=== PATIENT | female | born 2000 | race Caucasian/White ===

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

== ENCOUNTER → 2021-01-11 | Outpatient (CLI) | payer MEDICAID, SELFPAY ==
[2020-12-17 13:36] VITALS: BMI 38.0
[2021-01-11 15:49] LABS: Mucous, Urine 0 SEEN /hpf (<or=2+)
[2021-01-11 16:38] LABS: Color, Urine Yellow (Yellow); Glucose, Dipstick Normal (Normal); Ketone-Dipstick Negative (Negative); Leukocyte Esterase-Dipstick 500 /ul (Negative); Nitrite-Dipstick Negative (Negative); Occult Blood-Urine 10 /ul (Negative); Protein-Dipstick 15 mg/dl (Negative); Urine Bilirubin Dipstick Negative (Negative); Urine Clarity Sl. Cloudy (Clear); Urine Urobilinogen Normal (Normal)
[2021-01-11 16:54] LABS: Red Blood Cells-Urine 0-5 SEEN /hpf (0-5); Squamous Epithelial Cells - UA 5-10 SEEN /hpf (5-10); White Blood Cells 50-100 SEEN /hpf (0-5)
[2021-01-11 16:55] LABS: Amorphous Sediment 1+ PHOS; Bacteria 3+ /hpf (None Seen)
== END | disposition home or self-care (01) ==
LOC: LABSPEC 15:40
PROVIDERS: PCP Pediatrics; Visit Provider Obstetrics & Gynecology
DX: Z34.83 Encounter for supervision of other normal pregnancy, third trimester (principal)
CPT/HCPCS: 81001; 87086; 87088

== ENCOUNTER 2021-01-14 12:00 | Outpatient (CLI) | payer MEDICAID, SELFPAY ==
[2021-01-14 12:08] VITALS: BP 102/52; PULSE 95; TEMP 36.1; BMI 38.0
--- NOTE | 2021-01-14 23:11 | OB.TRI.NOTE ---
- Problem List (1) 32 weeks gestation of Status: Acute (2) Modified White class B pregestational diabetes mellitus Status: Acute History of Present Illness Date of Service: 01/14/21 Was patient seen by the physician?: No Reason For Visit: NST Final JOHANA: 03/06/21 Final JOHANA Source: US <20 weeks Gestational age: 32 Weeks and 5 Days History of Present Illness: 20y o at 32 5/7wga with hx pregestational diabetes presents for scheduled NST. Allergies amoxicillin [From Augmentin] Adverse Reaction (Verified 09/15/20 14:31) Other clavulanic acid [From Augmentin] Adverse Reaction (Verified 09/15/20 14:31) Other - Pertinent Past Medical History Medical History: Past Medical History (Last Updated 01/14/21 @ 23:[address] Idalia Willis MD) Bipolar depression Diabetes mellitus Surgical History: Past Surgical History (Last Updated 01/14/21 @ 23:[address] 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
== END 2021-01-14 12:30 | disposition home or self-care (01) ==
PROVIDERS: PCP Pediatrics; Referring Provider Obstetrics & Gynecology; Visit Provider Obstetrics & Gynecology
DX: O24.313 Unspecified pre-existing diabetes mellitus in pregnancy, third trimester (principal); Z3A.32 32 weeks gestation of pregnancy
CPT/HCPCS: 59025; 59050; 99218; G0378

== ENCOUNTER 2021-01-21 12:20 | Outpatient (CLI) | payer MEDICAID, SELFPAY ==
[2021-01-21 12:33] VITALS: BP 123/74; PULSE 89; TEMP 36.8; O2SAT 99
[2021-01-21 12:34] VITALS: BP 123/74; PULSE 89
[2021-01-21 12:46] LABS: Mucous, Urine 0 SEEN /hpf (<or=2+); Red Blood Cells-Urine 0 SEEN /hpf (0-5)
[2021-01-21 12:47] LABS: Color, Urine Yellow (Yellow); Glucose, Dipstick Normal (Normal); Ketone-Dipstick Negative (Negative); Leukocyte Esterase-Dipstick 25 /ul (Negative); Nitrite-Dipstick Negative (Negative); Occult Blood-Urine Negative /ul (Negative); Protein-Dipstick Negative (Negative); Urine Bilirubin Dipstick Negative (Negative); Urine Clarity Sl. Cloudy (Clear); Urine Urobilinogen Normal (Normal)
[2021-01-21 12:59] LABS: Bacteria 1+ /hpf (None Seen); Squamous Epithelial Cells - UA 0-5 SEEN /hpf (5-10); White Blood Cells 0-5 SEEN /hpf (0-5)
[2021-01-21 13:01] VITALS: BMI 38.7
[2021-01-21] MEDS: Acetaminophen 500 MG Tablet 1000 MG PO (14:04)
[2021-01-21 14:15] LABS: Fetal Fibronectin Negative
--- NOTE | 2021-01-25 22:23 | OB.TRI.NOTE ---
History of Present Illness Date of Service: 01/21/21 Was patient seen by the physician?: No Reason For Visit: NON STRESS TEST Date of Service: 01/21/21 Final JOHANA: 03/06/21 Final JOHANA Source: US <20 weeks Gestational age: 33 Weeks and 5 Days History of Present Illness: 33+ week intrauterine presents with some cramping and pressure. Allergies amoxicillin [From Augmentin] Adverse Reaction (Verified 01/21/21 13:00) Other clavulanic acid [From Augmentin] Adverse Reaction (Verified 01/21/21 13:00) Other - Pertinent Past Medical History Medical History: Past Medical History (Last Updated 01/14/21 @ 23:[address] Idalia Willis MD) Bipolar depression Diabetes mellitus Surgical History: Past Surgical History (Last Updated 01/14/21 @ 23:[address] Idalia Willis MD) H/O dilation and curettage 10/2016 Laboratory Studies: Laboratory Tests 01/21/21 01/21/21 Range/Units 13:35 12:40 Urine Color Yellow (Yellow) Urine Clarity Sl. Cloudy (Clear) Urine pH 7.0 (5.0 - 8.0) Ur Specific [place] 1.010 (1.002-1.030) Urine Protein Negative (Negative) mg/dl Urine Glucose (UA) Normal (Normal) mg/dl Urine Ketones Negative (Negative) mg/dl Urine Occult Blood Negative (Negative) /ul Urine Nitrite Negative (Negative) Urine Bilirubin Negative (Negative) mg/dL Urine Urobilinogen Normal (Normal) mg/dl Ur Leukocyte Esterase 25 H (Negative) /ul Urine RBC 0 SEEN (0-5) /hpf Urine WBC 0-5 SEEN (0-5) /hpf Ur Squamous Epith Cells 0-5 SEEN (5-10) /hpf Urine Bacteria 1+ (None Seen) /hpf Urine Mucus 0 SEEN (<or=2+) /hpf Fibronectin Negative Physical Exam Vitals: Vital Signs Temp Pulse BP Pulse Ox 98.2 F 89 123/74 H 99 01/21/21 12:33 01/21/21 12:34 01/21/21 12:34 01/21/21 12:33 NST - FHR Rate Baby A NST Reactive:: Yes FHR Category:: Category I Impression/Plan 33+ week intrauterine with some transient contractions. These resolved after pushing oral fluids. Cervix is nonthreatening. NST was reactive. Discharge to home with routine instructions.
== END 2021-01-21 15:15 | disposition home or self-care (01) ==
LOC: WPOUT 12:25 → OBT 12:28
PROVIDERS: PCP Pediatrics; Visit Provider Obstetrics & Gynecology
DX: O47.03 False labor before 37 completed weeks of gestation, third trimester (principal); O24.913 Unspecified diabetes mellitus in pregnancy, third trimester; Z3A.33 33 weeks gestation of pregnancy
CPT/HCPCS: 59025; 59050; 81001; 82731; 87086; 87088; 99218; G0378

== ENCOUNTER 2021-01-29 16:35 | Outpatient (CLI) | payer MEDICAID, SELFPAY ==
[2021-01-29 16:50] VITALS: TEMP 36.4
[2021-01-29 16:51] VITALS: BP 106/62; PULSE 99
[2021-01-29 16:55] VITALS: BMI 38.5
[2021-01-29 17:55] LABS: Mucous, Urine 0 SEEN /hpf (<or=2+); Red Blood Cells-Urine 0 SEEN /hpf (0-5)
[2021-01-29 17:57] LABS: Color, Urine Yellow (Yellow); Glucose, Dipstick Normal (Normal); Ketone-Dipstick Negative (Negative); Leukocyte Esterase-Dipstick 500 /ul (Negative); Nitrite-Dipstick Negative (Negative); Occult Blood-Urine Negative /ul (Negative); Protein-Dipstick Negative (Negative); Specific Gravity, Urine 1.015 (1.002-1.030); Urine Bilirubin Dipstick Negative (Negative); Urine Clarity Sl. Cloudy (Clear); Urine Urobilinogen 1 mg/dl (Normal); Urine pH 6.5 (5.0 - 8.0)
[2021-01-29 18:30] LABS: Squamous Epithelial Cells - UA 0-5 SEEN /hpf (5-10); White Blood Cells 10-25 SEEN /hpf (0-5)
[2021-01-29 18:31] LABS: Bacteria 1+ /hpf (None Seen)
--- NOTE | 2021-01-31 07:11 | OB.TRI.HP_ITS ---
History of Present Illness Date of Service: 01/29/21 Was patient seen by the physician?: No Reason For Visit: CRAMPING Date of Service: 01/29/21 Final JOHANA: 03/06/21 Final JOHANA Source: US <20 weeks Gestational age: 34 Weeks and 6 Days History of Present Illness: This is an 19-year-old G2, P0 Ab1 who presents to labor and delivery with some crampiness at 34+ weeks gestation. Allergies amoxicillin [From Augmentin] Adverse Reaction (Verified 01/29/21 16:56) Other clavulanic acid [From Augmentin] Adverse Reaction (Verified 01/29/21 16:56) Other - Pertinent Past Medical History Medical History: Past Medical History (Last Updated 01/14/21 @ 23:[address] Idalia Willis MD) Bipolar depression Diabetes mellitus Surgical History: Past Surgical History (Last Updated 01/14/21 @ 23:[address] Idalia Willis MD) H/O dilation and curettage 10/2016 Laboratory Studies: Laboratory Tests 01/29/21 Range/Units 17:00 Urine Color Yellow (Yellow) Urine Clarity Sl. Cloudy (Clear) Urine pH 6.5 (5.0 - 8.0) Ur Specific [place] 1.015 (1.002-1.030) Urine Protein Negative (Negative) mg/dl Urine Glucose (UA) Normal (Normal) mg/dl Urine Ketones Negative (Negative) mg/dl Urine Occult Blood Negative (Negative) /ul Urine Nitrite Negative (Negative) Urine Bilirubin Negative (Negative) mg/dL Urine Urobilinogen 1 H (Normal) mg/dl Ur Leukocyte Esterase 500 H (Negative) /ul Urine RBC 0 SEEN (0-5) /hpf Urine WBC 10-25 SEEN (0-5) /hpf Ur Squamous Epith Cells 0-5 SEEN (5-10) /hpf Urine Bacteria 1+ (None Seen) /hpf Urine Mucus 0 SEEN (<or=2+) /hpf Physical Exam Vitals: Vital Signs Temp Pulse BP 97.5 F L 99 106/62 01/29/21 16:50 01/29/21 16:51 01/29/21 16:51 NST - FHR Rate Baby B NST Reactive:: Yes FHR Category:: Category I Impression/Plan 34+ week intrauterine with some transient contractions. Reactive nonstress test. Minimal contractions noted on monitor or during observation of the patient. Cervix is unchanged versus checked about a week ago and is closed. Will discharge to home with routine instructions and follow-up.
== END 2021-01-29 17:30 | disposition home or self-care (01) ==
LOC: WPOUT 16:47 → WP 16:48
PROVIDERS: PCP Pediatrics; Visit Provider Obstetrics & Gynecology
DX: O60.03 Preterm labor without delivery, third trimester (principal); O24.913 Unspecified diabetes mellitus in pregnancy, third trimester; Z79.4 Long term (current) use of insulin; Z3A.34 34 weeks gestation of pregnancy
CPT/HCPCS: 59025; 59050; 81001; 87086; 87088; 99218; G0378

== ENCOUNTER → 2021-02-22 | Outpatient (CLI) | payer MEDICAID, SELFPAY ==
[2021-01-29 16:55] VITALS: BMI 38.5
== END | disposition home or self-care (01) ==
LOC: LABSPEC 11:46
PROVIDERS: PCP Pediatrics; Visit Provider Obstetrics & Gynecology
DX: Z36.85 Encounter for antenatal screening for Streptococcus B (principal)
CPT/HCPCS: 87081

== ENCOUNTER 2021-02-27 07:00 | Inpatient (IN) | payer MEDICAID, SELFPAY ==
[2021-02-27] VITALS (14 sets, daily range): BP systolic 112–132; BP diastolic 58–84; PULSE 57–77; TEMP 36.6–36.9; O2SAT 97–99; BMI 39.2
[2021-02-27] MEDS: Lactated Ringers 1,000 ML 50 ML IV (07:45)
[2021-02-27 08:17] LABS: Absolute Lymphocyte Count 2.98 X10^3/uL (0.83-4.51); Absolute Neutrophil Count 7.7 X10^3/uL (2.0-7.7); Basophil# 0.02 X10^3/uL; Basophil% 0.2 % (0-1); Eosinophil# 0.08 X10^3/uL; Eosinophils% 0.7 % (0-5); Hematocrit 35.8 % (37-47); Hemoglobin 12.7 g/dL (12.0-15.0); Lymphocyte # 2.98 X10^3/ul (4.0); Mean Corp Hgb Conc 35.5 g/dL (32-36); Mean Corpuscular Hgb 31.9 pg (27.0-32.0); Mean Corpuscular Volume 89.9 fL (81-99); Mean Platelet Vol. 10.9 fl (6.2-12.0); Monocyte# 0.65 X10^3/uL; Monocyte% 5.7 % (0-10); NRBC Flagged by Analyzer 0 % (0-5); Neutrophil # 7.68 X10^3/uL (2.7-7.7); Platelet Count 213 K/mm3 (150-450); RBC Distribution Width CV 12.8 % (11.6-14.6); RBC Distribution Width SD 41.9 fl (35.1-43.9); Red Blood Count 3.98 M/mm3 (4.2-5.4); White Blood Count 11.5 K/mm3 (4.4-11.0)
[2021-02-27 08:31] LABS: Bedside Glucose 185 mg/dL (70-110)
--- NOTE | 2021-02-27 08:45 | HP.PCM_ITS ---
History and Physical Date of Admission: 02/27/21 Chief complaint: Induction of labor at term History of present illness: 20-year-old G2, P0 at 39 weeks and 0 days with JOHANA: 03/06/2021 by her sound arrives for induction of labor at term. Denies headache, visual changes, nausea vomiting, chest pain, shortness of breath, right upper quadrant pain. Patient states good movement. 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, bipolar Medications: vitamin, Levemir 5 units twice daily Past surgical history: Tonsils and adenoids, hysteroscopy D&C IUD placement, oral surgery Allergies: No known drug allergies Social history: 1 pack/day smoker, THC use, denies alcohol use Family history: Denies history of DVT or PE Review of systems: Besides above pertinent positives a full review of systems was performed and found to be negative Physical exam: Vital Signs Temp Pulse BP Pulse Ox 02/27/21 08:12 74 116/71 97 02/27/21 08:11 98.2 F General: Normal-appearing no acute distress HEENT: Normocephalic atraumatic no cervical lymphadenopathy Cardiac/respiratory: Nonlabored breathing, no use of accessory muscles Abdomen: Soft, nontender, gravid Pelvic exam: Sterile speculum exam with no signs of HSV lesions. Cervical exam closed thick and high Extremities: No peripheral edema normal peripheral pulses Psych: Normal affect normal demeanor nonpressured speech Mom's Microbiology 02/27/21 07:45 Mucosa - Nose SARS-CoV-2 Antigen (Rapid) - Final Mom's Labs & Results 02/27/21 02/27/21 02/27/21 07:45 07:45 08:26 WBC 11.5 H RBC 3.98 L Hgb 12.7 Hct 35.8 L MCV 89.9 MCH 31.9 MCHC 35.5 RDW Std Deviation 41.9 RDW Coeff of Burke 12.8 Plt Count 213 MPV 10.9 Immature Gran % (Auto) 0.400 Neut % (Auto) 67.0 Lymph % (Auto) 26.0 [place] % (Auto) 5.7 Eos % (Auto) 0.7 Baso % (Auto) 0.2 Absolute Neuts (auto) 7.7 Absolute Lymphs (auto) 2.98 Nucleated RBC % 0 POC Glucose 185 H Blood Type Pending Antibody Screen Pending Labs Blood Type: B RH: POSITIVE RPR/VDRL/Syphilis Nonreactive Rubella status Immune HbSAg Negative Date Done: 07/15/20 Chlamydia Negative Gonorrhea Negative HIV/AIDS Non-Reactive Group B Strep: Negative Assessment and plan: 20 at 39 weeks and 0 days for induction of labor at term -Admit labor and delivery -See EFM -GBS negative -Induction of labor via Cytotec -HSV-1: Negative for lesions on sterile speculum exam -GDM A2 versus type II diabetic: Initially elevated One Touch blood sugars 180s. Patient ate [employer] this morning and did not take nighttime insulin or morning time insulin. Will start insulin drip. EFW 3332g at 35wk -Routine orders -Anesthesia to see
[2021-02-27] MEDS: miSOPROStol 25 MCG TABLET PO ×4 (09:05→21:56)
[2021-02-27 09:40] LABS: Amphetamine Urine VISTA NEGATIVE (<1000 ng/mL); Barbiturate Urine VISTA NEGATIVE (< 200 ng/mL); Benzodiazepine Urine VISTA NEGATIVE (< 200 ng/mL); Cocaine Urine VISTA NEGATIVE (< 300 ng/mL); Ecstacy Urine VISTA NEGATIVE (< 500 ng/mL); Methadone Urine VISTA NEGATIVE (< 300 ng/mL); PCP Urine VISTA NEGATIVE (< 25 ng/mL); THC Urine VISTA NEGATIVE (< 50 ng/mL); Vista UDS pH Range 6
[2021-02-27 10:01] LABS: Bedside Glucose 110 mg/dL (70-110)
[2021-02-27 11:05] LABS: Bedside Glucose 85 mg/dL (70-110)
[2021-02-27] MEDS: Mag Hydrox/Al Hydrox/Simeth 30 ML UDC PO (12:24)
[2021-02-27 15:11] LABS: Bedside Glucose 88 mg/dL (70-110)
--- NOTE | 2021-02-27 17:43 | PCM.PN.OB ---
Subjective: Resting comfortably in bed. - Physical Exam Vitals/I&O's: Vital Signs Temp Pulse BP Pulse Ox 97.9 F 60 132/81 H 98 02/27/21 15:40 02/27/21 17:42 02/27/21 17:42 02/27/21 15:40 Weight: 243 lb Body Mass Index (BMI) 39.2 Intake and Output for Last 24 Hours 02/25/21 02/26/21 02/27/21 23:59 23:59 23:59 Intake Total 1000 / 1000 Output Total 500 / 500 Balance 500 / 500 General: Alert, Oriented x3, Cooperative, No apparent distress HEENT: Atraumatic, Normocephalic Oral: Moist Mucosa Neck: Supple Abdomen: Soft, Non Tender, Gravid Extremities: No clubbing, No cyanosis, No edema Neurological: Neuro grossly intact Psych/Mental Status: Normal Affect, Appropriate, Alert and oriented to time, place, person, mood and affect Microbiology Past 72 Hours 02/27/21 07:45 Mucosa - Nose SARS-CoV-2 Antigen (Rapid) - Final Laboratory Results 02/27/21 07:45: WBC 11.5 H, RBC 3.98 L, Hgb 12.7, Hct 35.8 L, MCV 89.9, MCH 31.9, MCHC 35.5, RDW Std Deviation 41.9, RDW Coeff of Burke 12.8, Plt Count 213, MPV 10.9, Immature Gran % (Auto) 0.400, Neut % (Auto) 67.0, Lymph % (Auto) 26.0, [place] % (Auto) 5.7, Eos % (Auto) 0.7, Baso % (Auto) 0.2, Absolute Neuts (auto) 7.7, Absolute Lymphs (auto) 2.98, Nucleated RBC % 0 02/27/21 07:45: Blood Type B POSITIVE, Antibody Screen NEGATIVE 02/27/21 08:26: POC Glucose 185 H 02/27/21 09:20: Urine Opiates Screen NEGATIVE, Urine Methadone Screen NEGATIVE, Ur Barbiturates Screen NEGATIVE, Ur Phencyclidine Scrn NEGATIVE, Ur Amphetamines Screen NEGATIVE, U Methamphetamin-MDMA NEGATIVE, U Benzodiazepines Scrn NEGATIVE, Urine Cocaine Screen NEGATIVE, U Cannabinoids Screen NEGATIVE, Ur Drug Screen Comment 02/27/21 09:55: POC Glucose 110 02/27/21 11:00: POC Glucose 85 02/27/21 15:03: POC Glucose 88 Current Medications Acetaminophen (Acetaminophen 500 Mg Tablet) 500 - 1,000 mg PO Q6H PRN PRN PRN Reason: Pain Score 1-3 Al Hydroxide/Mg Hydroxide (Mag Hydrox/Al Hydrox/Simeth 30 Ml Udc) 15 - 30 ml PO Q4H PRN PRN PRN Reason: INDIGESTION Last Admin: 02/27/21 12:24 Dose: 30 ml Documented by: Citric Acid/Sodium Citrate (Sodium Citrate/Citric Acid 30 Ml Udc) 30 ml PO X1 PRN PRN Reason: Section Dextrose (Dextrose 50%-Water 25 Gm/50 Ml Disp.Syrin) 0 gm IV X1 PRN; Protocol PRN Reason: Hypoglycemia Ephedrine Sulfate (Ephedrine Sulfate 50 Mg/Ml Ampul) 10 mg IV Q10M PRN PRN Reason: hypotension Ephedrine Sulfate (Ephedrine Sulfate 50 Mg/Ml Ampul) 10 mg IM Q30M PRN PRN Reason: hypotension Fentanyl Citrate (Fentanyl 100 Mcg/2 Ml Ampul) 25 - 50 mcg IV Q2H PRN PRN PRN Reason: Pain Score 4-10 Fentanyl/Bupivacaine/Sodium Chlor (Fentanyl-Bupivacaine (Epidural) 100 Ml Bag) 0 ml EPIDURAL UD [facility]; Protocol Glucagon (Glucagon 1 Mg/Ml Syringe) 1 mg IM .X1 PRN PRN Reason: Hypoglycemia Lactated Ringer's () 500 mls @ 999 mls/hr IV .Q31M PRN PRN Reason: Epidural Lactated Ringer's () 500 mls @ 999 mls/hr IV .Q31M PRN PRN Reason: Corrective Measures Lactated Ringer's () 1,000 mls @ 50 mls/hr IV .Q20H [facility] Last Admin: 02/27/21 07:45 Dose: 50 mls/hr Documented by: Lactated Ringer's () 1,000 mls @ 15 mls/hr IV .Q48H [facility] Last Admin: 02/27/21 14:58 Dose: Not Given Documented by: Dextrose/Sodium Chloride () 1,000 mls @ 125 mls/hr IV .Q8H [facility] Last Admin: 02/27/21 14:59 Dose: Not Given Documented by: Insulin Human Lispro 100 unit/ (Sodium Chloride) 100 mls @ 0 mls/hr IV .Q0M [facility]; Protocol Misoprostol (Misoprostol 25 Mcg Tablet) 25 mcg PO Q4H [facility] Last Admin: 02/27/21 13:19 Dose: 25 mcg Documented by: Nalbuphine HCl (Nalbuphine 10 Mg/Ml Ampul) 5 mg IV Q3H PRN PRN PRN Reason: ITCHING Naloxone HCl (Naloxone 0.4 Mg/Ml Syringe) 0.02 mg IV Q1M PRN PRN Reason: RR <10 and pt unresponsive Ondansetron HCl (Ondansetron 4 Mg/2 Ml Vial) 4 mg IV Q4H PRN PRN PRN Reason: NAUSEA Prochlorperazine Edisylate (Prochlorperazine 10 Mg/2 Ml Vial) 10 mg IV Q6H PRN PRN PRN Reason: NAUSEA Sodium Chloride (0.9% Saline Lock 10 Ml Syringe) 10 - 40 ml IV X1 PRN PRN Reason: SALINE FLUSH Medical Necessity - Tobacco Use Smoking Status: Light Smoker (<10/day) Assessment/Plan All Active Problems (Last Updated 01/14/21 @ 23:[address] Idalia Willis MD) Missed (Acute) Contraception, device intrauterine (Acute) Encounter for insertion of intrauterine contraceptive device (Acute) 32 weeks gestation of (Acute) Modified White class B pregestational diabetes mellitus (Acute) Patient seen and examined. Resting comfortably in bed. Cytotec 25 mcg now x3 given. Third dose just given. Cervix remains relatively unchanged. Reviewed heart rate tracing with nursing heart tone 120/moderate variability/positive accelerations/questionable late borderline prolonged deceleration x2. Overall since arrival heart rate tracing reassuring. Soon after patient with multiple accelerations, overall category 1 tracing. Okay to continue Cytotec induction.
[2021-02-27 19:01] LABS: Bedside Glucose 79 mg/dL (70-110)
[2021-02-27 23:10] LABS: Bedside Glucose 74 mg/dL (70-110)
[2021-02-28] VITALS (22 sets, daily range): BP systolic 84–125; BP diastolic 46–85; PULSE 56–95; TEMP 36.4–37; O2SAT 96–100
[2021-02-28] MEDS: miSOPROStol 25 MCG TABLET PO ×3 (01:54→10:20)
[2021-02-28 03:11] LABS: Bedside Glucose 77 mg/dL (70-110)
[2021-02-28] MEDS: Lactated Ringers 1,000 ML 50 ML IV (06:03)
[2021-02-28 06:50] LABS: Bedside Glucose 76 mg/dL (70-110)
--- NOTE | 2021-02-28 08:29 | PN.OBGYN_ITS ---
Subjective: Resting comfortably in bed with significant other. Slept well overnight. Feels minimal contractions. - Physical Exam Vitals/I&O's: Vital Signs Temp Pulse BP Pulse Ox 97.6 F L 65 114/57 L 96 02/28/21 07:20 02/28/21 07:22 02/28/21 07:22 02/28/21 06:02 Weight: 243 lb Body Mass Index (BMI) 39.2 Intake and Output for Last 24 Hours 02/26/21 02/27/21 02/28/21 23:59 23:59 23:59 Intake Total 1000 / 1000 1000 / 1000 Output Total 1100 / 1100 600 / 600 Balance -100 / -100 400 / 400 General: Alert, Oriented x3, Cooperative, No apparent distress HEENT: Atraumatic, Normocephalic Oral: Moist Mucosa Neck: Supple Extremities: No clubbing, No cyanosis, No edema Neurological: Neuro grossly intact Psych/Mental Status: Normal Affect, Appropriate, Alert and oriented to time, place, person, mood and affect Microbiology Past 72 Hours 02/27/21 07:45 Mucosa - Nose SARS-CoV-2 Antigen (Rapid) - Final Laboratory Results 02/27/21 07:45: Blood Type B POSITIVE, Antibody Screen NEGATIVE 02/27/21 08:26: POC Glucose 185 H 02/27/21 09:20: Urine Opiates Screen NEGATIVE, Urine Methadone Screen NEGATIVE, Ur Barbiturates Screen NEGATIVE, Ur Phencyclidine Scrn NEGATIVE, Ur Amphetamines Screen NEGATIVE, U Methamphetamin-MDMA NEGATIVE, U Benzodiazepines Scrn NEGATIVE, Urine Cocaine Screen NEGATIVE, U Cannabinoids Screen NEGATIVE, Ur Drug Screen Comment 02/27/21 09:55: POC Glucose 110 02/27/21 11:00: POC Glucose 85 02/27/21 15:03: POC Glucose 88 02/27/21 18:53: POC Glucose 79 02/27/21 23:04: POC Glucose 74 02/28/21 03:03: POC Glucose 77 02/28/21 06:38: POC Glucose 76 Current Medications Acetaminophen (Acetaminophen 500 Mg Tablet) 500 - 1,000 mg PO Q6H PRN PRN PRN Reason: Pain Score 1-3 Al Hydroxide/Mg Hydroxide (Mag Hydrox/Al Hydrox/Simeth 30 Ml Udc) 15 - 30 ml PO Q4H PRN PRN PRN Reason: INDIGESTION Last Admin: 02/27/21 12:24 Dose: 30 ml Documented by: Citric Acid/Sodium Citrate (Sodium Citrate/Citric Acid 30 Ml Udc) 30 ml PO X1 PRN PRN Reason: Section Dextrose (Dextrose 50%-Water 25 Gm/50 Ml Disp.Syrin) 0 gm IV X1 PRN; Protocol PRN Reason: Hypoglycemia Ephedrine Sulfate (Ephedrine Sulfate 50 Mg/Ml Ampul) 10 mg IV Q10M PRN PRN Reason: hypotension Ephedrine Sulfate (Ephedrine Sulfate 50 Mg/Ml Ampul) 10 mg IM Q30M PRN PRN Reason: hypotension Fentanyl Citrate (Fentanyl 100 Mcg/2 Ml Ampul) 25 - 50 mcg IV Q2H PRN PRN PRN Reason: Pain Score 4-10 Fentanyl/Bupivacaine/Sodium Chlor (Fentanyl-Bupivacaine (Epidural) 100 Ml Bag) 0 ml EPIDURAL UD [facility]; Protocol Glucagon (Glucagon 1 Mg/Ml Syringe) 1 mg IM .X1 PRN PRN Reason: Hypoglycemia Lactated Ringer's () 500 mls @ 999 mls/hr IV .Q31M PRN PRN Reason: Epidural Lactated Ringer's () 500 mls @ 999 mls/hr IV .Q31M PRN PRN Reason: Corrective Measures Lactated Ringer's () 1,000 mls @ 50 mls/hr IV .Q20H [facility] Last Admin: 02/28/21 06:03 Dose: 50 mls/hr Documented by: Lactated Ringer's () 1,000 mls @ 15 mls/hr IV .Q48H [facility] Last Admin: 02/27/21 14:58 Dose: Not Given Documented by: Dextrose/Sodium Chloride () 1,000 mls @ 125 mls/hr IV .Q8H [facility] Last Admin: 02/28/21 03:08 Dose: Not Given Documented by: Insulin Human Lispro 100 unit/ (Sodium Chloride) 100 mls @ 0 mls/hr IV .Q0M [facility]; Protocol Misoprostol (Misoprostol 25 Mcg Tablet) 25 mcg PO Q4H [facility] Last Admin: 02/28/21 06:16 Dose: 25 mcg Documented by: Nalbuphine HCl (Nalbuphine 10 Mg/Ml Ampul) 5 mg IV Q3H PRN PRN PRN Reason: ITCHING Naloxone HCl (Naloxone 0.4 Mg/Ml Syringe) 0.02 mg IV Q1M PRN PRN Reason: RR <10 and pt unresponsive Ondansetron HCl (Ondansetron 4 Mg/2 Ml Vial) 4 mg IV Q4H PRN PRN PRN Reason: NAUSEA Prochlorperazine Edisylate (Prochlorperazine 10 Mg/2 Ml Vial) 10 mg IV Q6H PRN PRN PRN Reason: NAUSEA Sodium Chloride (0.9% Saline Lock 10 Ml Syringe) 10 - 40 ml IV X1 PRN PRN Reason: SALINE FLUSH Medical Necessity - Tobacco Use Smoking Status: Light Smoker (<10/day) Assessment/Plan All Active Problems (Last Updated 01/14/21 @ 23:[address] Idalia Willis MD) Missed (Acute) Contraception, device intrauterine (Acute) Encounter for insertion of intrauterine contraceptive device (Acute) 32 weeks gestation of (Acute) Modified White class B pregestational diabetes mellitus (Acute) Patient seen and examined. Induction of labor via Cytotec. Membranes intact. Discussed rupture membranes but at this time will continue expectant management and await further dilation for rupture membranes. If no progress this evening will consider AROM. Cervical exam per nursing 1 cm, will continue Cytotec induction and transition to Pitocin cervical dilation progresses. After initial elevated blood sugars yesterday and insulin drip ordered, then DC'd with now normal blood sugars. Will treat if needed
[2021-02-28 10:31] LABS: Bedside Glucose 77 mg/dL (70-110)
[2021-02-28 14:35] LABS: Bedside Glucose 69 mg/dL (70-110)
[2021-02-28] MEDS: Acetaminophen 500 MG Tablet PO (15:02)
[2021-02-28] MEDS: Oxytocin 30 units/NS 500 ml 30 UNITS/500 ML IV.SOLN IV (15:10)
[2021-02-28 18:26] LABS: Bedside Glucose 71 mg/dL (70-110)
--- NOTE | 2021-02-28 18:44 | PN.OBGYN_ITS ---
Subjective: Resting comfortably in bed. Has some anxiety, says this is normal for her. Overall feels comfortable - Physical Exam Vitals/I&O's: Vital Signs Temp Pulse BP Pulse Ox 97.9 F 56 L 123/75 H 98 02/28/21 17:21 02/28/21 18:09 02/28/21 18:09 02/28/21 14:17 Weight: 243 lb Body Mass Index (BMI) 39.2 Intake and Output for Last 24 Hours 02/26/21 02/27/21 02/28/21 23:59 23:59 23:59 Intake Total 1000 / 1000 1013.97 / 1013.97 Output Total 1100 / 1100 600 / 600 Balance -100 / -100 413.97 / 413.97 General: Alert, Oriented x3, Cooperative, No apparent distress HEENT: Atraumatic, Normocephalic Oral: Moist Mucosa Neck: Supple Extremities: No clubbing, No cyanosis, No edema Neurological: Neuro grossly intact Psych/Mental Status: Normal Affect, Appropriate, Alert and oriented to time, place, person, mood and affect Microbiology Past 72 Hours 02/27/21 07:45 Mucosa - Nose SARS-CoV-2 Antigen (Rapid) - Final Laboratory Results 02/27/21 18:53: POC Glucose 79 02/27/21 23:04: POC Glucose 74 02/28/21 03:03: POC Glucose 77 02/28/21 06:38: POC Glucose 76 02/28/21 10:24: POC Glucose 77 02/28/21 14:19: POC Glucose 69 L 02/28/21 18:13: POC Glucose 71 Current Medications Acetaminophen (Acetaminophen 500 Mg Tablet) 500 - 1,000 mg PO Q6H PRN PRN PRN Reason: Pain Score 1-3 Last Admin: 02/28/21 15:02 Dose: 1,000 mg Documented by: Al Hydroxide/Mg Hydroxide (Mag Hydrox/Al Hydrox/Simeth 30 Ml Udc) 15 - 30 ml PO Q4H PRN PRN PRN Reason: INDIGESTION Last Admin: 02/27/21 12:24 Dose: 30 ml Documented by: Citric Acid/Sodium Citrate (Sodium Citrate/Citric Acid 30 Ml Udc) 30 ml PO X1 PRN PRN Reason: Section Dextrose (Dextrose 50%-Water 25 Gm/50 Ml Disp.Syrin) 0 gm IV X1 PRN; Protocol PRN Reason: Hypoglycemia Ephedrine Sulfate (Ephedrine Sulfate 50 Mg/Ml Ampul) 10 mg IV Q10M PRN PRN Reason: hypotension Ephedrine Sulfate (Ephedrine Sulfate 50 Mg/Ml Ampul) 10 mg IM Q30M PRN PRN Reason: hypotension Fentanyl Citrate (Fentanyl 100 Mcg/2 Ml Ampul) 25 - 50 mcg IV Q2H PRN PRN PRN Reason: Pain Score 4-10 Fentanyl/Bupivacaine/Sodium Chlor (Fentanyl-Bupivacaine (Epidural) 100 Ml Bag) 0 ml EPIDURAL UD [facility]; Protocol Glucagon (Glucagon 1 Mg/Ml Syringe) 1 mg IM .X1 PRN PRN Reason: Hypoglycemia Lactated Ringer's () 500 mls @ 999 mls/hr IV .Q31M PRN PRN Reason: Epidural Lactated Ringer's () 500 mls @ 999 mls/hr IV .Q31M PRN PRN Reason: Corrective Measures Lactated Ringer's () 1,000 mls @ 50 mls/hr IV .Q20H [facility] Last Admin: 02/28/21 06:03 Dose: 50 mls/hr Documented by: Lactated Ringer's () 1,000 mls @ 15 mls/hr IV .Q48H [facility] Last Admin: 02/27/21 14:58 Dose: Not Given Documented by: Dextrose/Sodium Chloride () 1,000 mls @ 125 mls/hr IV .Q8H [facility] Last Admin: 02/28/21 03:08 Dose: Not Given Documented by: Insulin Human Lispro 100 unit/ (Sodium Chloride) 100 mls @ 0 mls/hr IV .Q0M [facility]; Protocol Oxytocin/Sodium Chloride () 30 units in 500 mls @ 2 mls/hr IV .Q250H [facility] Last Infusion: 02/28/21 18:09 Dose: 8 mls/hr Documented by: Misoprostol (Misoprostol 25 Mcg Tablet) 25 mcg PO Q4H [facility] Last Admin: 02/28/21 10:20 Dose: 25 mcg Documented by: Nalbuphine HCl (Nalbuphine 10 Mg/Ml Ampul) 5 mg IV Q3H PRN PRN PRN Reason: ITCHING Naloxone HCl (Naloxone 0.4 Mg/Ml Syringe) 0.02 mg IV Q1M PRN PRN Reason: RR <10 and pt unresponsive Ondansetron HCl (Ondansetron 4 Mg/2 Ml Vial) 4 mg IV Q4H PRN PRN PRN Reason: NAUSEA Prochlorperazine Edisylate (Prochlorperazine 10 Mg/2 Ml Vial) 10 mg IV Q6H PRN PRN PRN Reason: NAUSEA Sodium Chloride (0.9% Saline Lock 10 Ml Syringe) 10 - 40 ml IV X1 PRN PRN Reason: SALINE FLUSH Medical Necessity - Tobacco Use Smoking Status: Light Smoker (<10/day) Assessment/Plan All Active Problems (Last Updated 01/14/21 @ 23:[address] Idalia Willis MD) Missed (Acute) Contraception, device intrauterine (Acute) Encounter for insertion of intrauterine contraceptive device (Acute) 32 weeks gestation of (Acute) Modified White class B pregestational diabetes mellitus (Acute) Patient seen and examined. Now on Pitocin. AROM for clear fluid. Attempt for FSE to be placed cervical exam /-3, FSE fell off after placement. Will consider internal monitors as dilation progresses. Overall we will continue to titrate Pitocin.
[2021-02-28] MEDS: 0.9% Saline Lock 10 ML Syringe IV (19:37)
[2021-02-28] MEDS: Ondansetron 4 MG/2 ML Vial IV (19:37)
[2021-02-28 19:41] LABS: Bedside Glucose 61 mg/dL (70-110)
[2021-02-28] MEDS: Lactated Ringers 500 ML 999 ML IV (23:20)
[2021-02-28 23:26] LABS: Bedside Glucose 80 mg/dL (70-110)
[2021-03-01] VITALS (73 sets, daily range): BP systolic 94–146; BP diastolic 52–97; PULSE 64–143; RESP 14–24; TEMP 36.3–37.4; O2SAT 81–100
[2021-03-01] MEDS: Lactated Ringers 1,000 ML 200 ML IV ×3 (00:09→11:32)
[2021-03-01] MEDS: fentaNYL-bupivacaine (epidural) 100 ML BAG EPIDURAL ×4 (00:35→14:35)
[2021-03-01 04:20] LABS: Bedside Glucose 74 mg/dL (70-110)
[2021-03-01] MEDS: Lactated Ringers 500 ML 999 ML IV ×2 (06:41→14:25)
[2021-03-01 08:15] LABS: Bedside Glucose 74 mg/dL (70-110)
--- NOTE | 2021-03-01 09:31 | PCM.PN.OB ---
Subjective: Patient has progressed to 5 cm 90% effaced -2 station. Now approximately 13 to 14 hours post rupture with delivery not eminent in near future. Given this we will start IV antibiotic. heart tones reassuring with occasional periods of low variability. Blood sugars okay. Expect spontaneous vaginal delivery. - Physical Exam Vitals/I&O's: Vital Signs Temp Pulse BP Pulse Ox 99.1 F 78 98/61 99 03/01/21 09:12 03/01/21 09:12 03/01/21 09:12 03/01/21 09:12 Weight: 243 lb Body Mass Index (BMI) 39.2 Intake and Output for Last 24 Hours 02/27/21 02/28/21 03/01/21 23:59 23:59 23:59 Intake Total 1000 / 1000 3205.21 / 3205.21 2306.33 / 2306.33 Output Total 1100 / 1100 1200 / 1200 1450 / 1450 Balance -100 / -100 / 856.33 / 856.33 Microbiology Past 72 Hours 02/27/21 07:45 Mucosa - Nose SARS-CoV-2 Antigen (Rapid) - Final Laboratory Results 02/28/21 10:24: POC Glucose 77 02/28/21 14:19: POC Glucose 69 L 02/28/21 18:13: POC Glucose 71 02/28/21 19:33: POC Glucose 61 L 02/28/21 23:02: POC Glucose 80 03/01/21 03:27: POC Glucose 74 03/01/21 07:48: POC Glucose 74 Current Medications Acetaminophen (Acetaminophen 500 Mg Tablet) 500 - 1,000 mg PO Q6H PRN PRN PRN Reason: Pain Score 1-3 Last Admin: 02/28/21 15:02 Dose: 1,000 mg Documented by: Al Hydroxide/Mg Hydroxide (Mag Hydrox/Al Hydrox/Simeth 30 Ml Udc) 15 - 30 ml PO Q4H PRN PRN PRN Reason: INDIGESTION Last Admin: 02/27/21 12:24 Dose: 30 ml Documented by: Citric Acid/Sodium Citrate (Sodium Citrate/Citric Acid 30 Ml Udc) 30 ml PO X1 PRN PRN Reason: Section Dextrose (Dextrose 50%-Water 25 Gm/50 Ml Disp.Syrin) 0 gm IV X1 PRN; Protocol PRN Reason: Hypoglycemia Ephedrine Sulfate (Ephedrine Sulfate 50 Mg/Ml Ampul) 10 mg IV Q10M PRN PRN Reason: hypotension Ephedrine Sulfate (Ephedrine Sulfate 50 Mg/Ml Ampul) 10 mg IM Q30M PRN PRN Reason: hypotension Fentanyl/Bupivacaine/Sodium Chlor (Fentanyl-Bupivacaine (Epidural) 100 Ml Bag) 0 ml EPIDURAL UD [facility]; Protocol Last Admin: 03/01/21 09:11 Dose: 100 ml Documented by: Glucagon (Glucagon 1 Mg/Ml Syringe) 1 mg IM .X1 PRN PRN Reason: Hypoglycemia Lactated Ringer's () 500 mls @ 999 mls/hr IV .Q31M PRN PRN Reason: Epidural Last Infusion: 02/28/21 23:51 Dose: Infused Documented by: Lactated Ringer's () 500 mls @ 999 mls/hr IV .Q31M PRN PRN Reason: Corrective Measures Last Infusion: 03/01/21 07:12 Dose: Infused Documented by: Lactated Ringer's () 1,000 mls @ 50 mls/hr IV .Q20H [facility] Last Infusion: 03/01/21 07:12 Dose: 200 mls/hr Documented by: Lactated Ringer's () 1,000 mls @ 15 mls/hr IV .Q48H [facility] Last Admin: 02/27/21 14:58 Dose: Not Given Documented by: Dextrose/Sodium Chloride () 1,000 mls @ 125 mls/hr IV .Q8H [facility] Last Admin: 03/01/21 03:53 Dose: Not Given Documented by: Insulin Human Lispro 100 unit/ (Sodium Chloride) 100 mls @ 0 mls/hr IV .Q0M [facility]; Protocol Oxytocin/Sodium Chloride () 30 units in 500 mls @ 2 mls/hr IV .Q250H [facility] Last Infusion: 03/01/21 07:56 Dose: 20 mls/hr Documented by: Penicillin G Potassium 5 mu/ (Sodium Chloride) 105 mls @ 150 mls/hr IV X1 ONE Stop: 03/01/21 09:48 Penicillin G Potassium/Dextrose (Penicillin G Potassium) 3 mu in 50 mls @ 100 mls/hr IV Q4H [facility] Nalbuphine HCl (Nalbuphine 10 Mg/Ml Ampul) 5 mg IV Q3H PRN PRN PRN Reason: ITCHING Naloxone HCl (Naloxone 0.4 Mg/Ml Syringe) 0.02 mg IV Q1M PRN PRN Reason: RR <10 and pt unresponsive Ondansetron HCl (Ondansetron 4 Mg/2 Ml Vial) 4 mg IV Q4H PRN PRN PRN Reason: NAUSEA Last Admin: 02/28/21 19:37 Dose: 4 mg Documented by: Prochlorperazine Edisylate (Prochlorperazine 10 Mg/2 Ml Vial) 10 mg IV Q6H PRN PRN PRN Reason: NAUSEA Sodium Chloride (0.9% Saline Lock 10 Ml Syringe) 10 - 40 ml IV X1 PRN PRN Reason: SALINE FLUSH Last Admin: 02/28/21 19:37 Dose: 10 ml Documented by: Medical Necessity - Tobacco Use Smoking Status: Light Smoker (<10/day) Assessment/Plan All Active Problems (Last Updated 01/14/21 @ 23:[address] Idalia Willis MD) Missed (Acute) Contraception, device intrauterine (Acute) Encounter for insertion of intrauterine contraceptive device (Acute) 32 weeks gestation of (Acute) Modified White class B pregestational diabetes mellitus (Acute)
[2021-03-01 12:00] LABS: Bedside Glucose 62 mg/dL (70-110)
[2021-03-01 13:20] LABS: Bedside Glucose 104 mg/dL (70-110)
[2021-03-01 14:41] LABS: Bedside Glucose 90 mg/dL (70-110)
[2021-03-01 15:31] LABS: Bedside Glucose 92 mg/dL (70-110)
[2021-03-01 16:56] LABS: Bedside Glucose 85 mg/dL (70-110)
[2021-03-01] MEDS: Sodium Citrate/Citric Acid 30 ML UDC PO (17:04)
--- NOTE | 2021-03-01 17:05 | PCM.PN.OB ---
Subjective: Patient has progressed to 5 to 6 cm 90% effaced and -2 station with adequate contractions noted with an intrauterine pressure catheter. She has remained at this dilation and station for approximately 8 hours. Further, heart tones are with minimal variability with occasional deceleration noted requiring oxygen. We have stopped Pitocin as baby will not tolerate Pitocin. She is received 2 doses of penicillin antibiotic. Given no prospect of delivering soon and nonreassuring heart tones, we will proceed with section for failure to progress and increasing stress. Discussed risks benefits and alternatives with the patient and her family and all questions were answered and they agree and request that the procedure be done. - Physical Exam Vitals/I&O's: Vital Signs Temp Pulse BP Pulse Ox 98.8 F 99 110/77 100 03/01/21 16:17 03/01/21 16:17 03/01/21 16:17 03/01/21 16:17 Weight: 243 lb Body Mass Index (BMI) 39.2 Intake and Output for Last 24 Hours 02/27/21 02/28/21 03/01/21 23:59 23:59 23:59 Intake Total 1000 / 1000 3205.21 / 3205.21 4593.57 / 4593.57 Output Total 1100 / 1100 1200 / 1200 1600 / 1600 Balance -100 / -100 2004. / 2993.57 / 2993.57 Microbiology Past 72 Hours 02/27/21 07:45 Mucosa - Nose SARS-CoV-2 Antigen (Rapid) - Final Laboratory Results 02/28/21 18:13: POC Glucose 71 02/28/21 19:33: POC Glucose 61 L 02/28/21 23:02: POC Glucose 80 03/01/21 03:27: POC Glucose 74 03/01/21 07:48: POC Glucose 74 03/01/21 11:48: POC Glucose 62 L 03/01/21 13:12: POC Glucose 104 03/01/21 14:33: POC Glucose 90 03/01/21 15:28: POC Glucose 92 03/01/21 16:44: POC Glucose 85 Current Medications Acetaminophen (Acetaminophen 500 Mg Tablet) 500 - 1,000 mg PO Q6H PRN PRN PRN Reason: Pain Score 1-3 Last Admin: 02/28/21 15:02 Dose: 1,000 mg Documented by: Al Hydroxide/Mg Hydroxide (Mag Hydrox/Al Hydrox/Simeth 30 Ml Udc) 15 - 30 ml PO Q4H PRN PRN PRN Reason: INDIGESTION Last Admin: 02/27/21 12:24 Dose: 30 ml Documented by: Dextrose (Dextrose 50%-Water 25 Gm/50 Ml Disp.Syrin) 0 gm IV X1 PRN; Protocol PRN Reason: Hypoglycemia Ephedrine Sulfate (Ephedrine Sulfate 50 Mg/Ml Ampul) 10 mg IV Q10M PRN PRN Reason: hypotension Ephedrine Sulfate (Ephedrine Sulfate 50 Mg/Ml Ampul) 10 mg IM Q30M PRN PRN Reason: hypotension Fentanyl/Bupivacaine/Sodium Chlor (Fentanyl-Bupivacaine (Epidural) 100 Ml Bag) 0 ml EPIDURAL UD [facility]; Protocol Last Admin: 03/01/21 14:35 Dose: 100 ml Documented by: Glucagon (Glucagon 1 Mg/Ml Syringe) 1 mg IM .X1 PRN PRN Reason: Hypoglycemia Lactated Ringer's () 500 mls @ 999 mls/hr IV .Q31M PRN PRN Reason: Epidural Last Infusion: 02/28/21 23:51 Dose: Infused Documented by: Lactated Ringer's () 500 mls @ 999 mls/hr IV .Q31M PRN PRN Reason: Corrective Measures Last Infusion: 03/01/21 14:56 Dose: Infused Documented by: Lactated Ringer's () 1,000 mls @ 50 mls/hr IV .Q20H [facility] Last Admin: 03/01/21 11:32 Dose: 200 mls/hr Documented by: Lactated Ringer's () 1,000 mls @ 15 mls/hr IV .Q48H [facility] Last Admin: 02/27/21 14:58 Dose: Not Given Documented by: Dextrose/Sodium Chloride () 1,000 mls @ 125 mls/hr IV .Q8H [facility] Last Admin: 03/01/21 11:30 Dose: Not Given Documented by: Insulin Human Lispro 100 unit/ (Sodium Chloride) 100 mls @ 0 mls/hr IV .Q0M [facility]; Protocol Oxytocin/Sodium Chloride () 30 units in 500 mls @ 2 mls/hr IV .Q250H [facility] Last Infusion: 03/01/21 16:02 Dose: Infused Documented by: Penicillin G Potassium/Dextrose (Penicillin G Potassium) 3 mu in 50 mls @ 100 mls/hr IV Q4H [facility] Last Infusion: 03/01/21 15:12 Dose: Infused Documented by: Nalbuphine HCl (Nalbuphine 10 Mg/Ml Ampul) 5 mg IV Q3H PRN PRN PRN Reason: ITCHING Naloxone HCl (Naloxone 0.4 Mg/Ml Syringe) 0.02 mg IV Q1M PRN PRN Reason: RR <10 and pt unresponsive Ondansetron HCl (Ondansetron 4 Mg/2 Ml Vial) 4 mg IV Q4H PRN PRN PRN Reason: NAUSEA Last Admin: 02/28/21 19:37 Dose: 4 mg Documented by: Prochlorperazine Edisylate (Prochlorperazine 10 Mg/2 Ml Vial) 10 mg IV Q6H PRN PRN PRN Reason: NAUSEA Sodium Chloride (0.9% Saline Lock 10 Ml Syringe) 10 - 40 ml IV X1 PRN PRN Reason: SALINE FLUSH Last Admin: 02/28/21 19:37 Dose: 10 ml Documented by: Medical Necessity - Tobacco Use Smoking Status: Light Smoker (<10/day) Assessment/Plan All Active Problems (Last Updated 01/14/21 @ 23:[address] Idalia Willis MD) Missed (Acute) Contraception, device intrauterine (Acute) Encounter for insertion of intrauterine contraceptive device (Acute) 32 weeks gestation of (Acute) Modified White class B pregestational diabetes mellitus (Acute)
[2021-03-01] MEDS: Cefazolin 2 GM in 0.9% Normal Saline 100 ML IV (17:23)
[2021-03-01] MEDS: Methylergonovine 0.2 MG/ML Ampul IM (17:35)
--- NOTE | 2021-03-01 18:09 | OP.PCM_ITS ---
Delivery Classification: LAY Final JOHANA: 03/06/21 Final JOHANA Source: US <20 weeks Gestational age: 39 Weeks and 2 Days doctor who attended delivery (if requested by OB): Yuliana Bradley senior front end engineer: Wellington Diaz Type of Anesthesia:: Spinal - With Duramorph Converted to General Endotracheal Anesthesia Date of Procedure: 03/01/21 Pre-Operative Diagnosis: Gestational Diabetes Type A2, Failure To Descend and Progress, Increasing Stress Post-Operative Diagnosis: Gestational Diabetes Type A2, Failure To Descend and Progress, Increasing Stress Description of Procedure: Surgeon: Jesus Kohler MD, FACOG Anesthesia: Zoë Beasley MD Procedure: Primary Low Transverse Cervical Caesarean Section Findings: Viable male infant with Apgars of 8/9 in occiput anterior presentation with clear amniotic fluid and normal three-vessel placenta. Indication: This is a 19-year-old who presented 2 days ago for Cytotec induction for gestational diabetes type A2. Last evening rupture of membranes was performed when the patient was 1 cm and by approximately 9 AM this morning cervix had progressed to 5 to 6 cm and 90% effaced with -2 to -3 station of the head. Despite adequate contractions noted with an intrauterine pressure catheter the cervix did not progress for at least 8 hours. Marked caput was noted and no descent of the head was noted as well. Further there was noted to be multiple decelerations and periods of decreased variability. Given no prospect of delivering soon it was decided to proceed with section for failure to progress and increasing stress. The patient has been counseled regarding the risk and indications of this procedure including the possibility of bleeding infection and injury to surrounding structures such as bowel bladder. All questions were answered. Procedure: Patient was taken to the operating room where her epidural catheter was redosed. Testing before proceeding with surgery revealed that the epidural was not effective so it was decided to proceed with general anesthesia. The patient had been previously prepped and draped in usual sterile fashion and a Wise catheter was in place. Immediately after general anesthesia was given, the abdomen was entered through a Pfannenstiel incision and peritoneum was entered bluntly. After developing a bladder flap on the lower uterine segment a low transverse incision was made on the uterus and head was easily delivered onto the operative field the nose mouth and oropharynx were bulb suctioned. Subsequently a viable male was born with Apgars of 8/9. The was noted to cry move all extremities vigorously on the operative field. The umbilical cord was doubly clamped and ligated and handed to the nursery personnel who were present for the delivery. Arterial and venous blood gases were sent per routine. Placenta was delivered and noted to be 3 vessels and normal. Uterus was exteriorized and remaining placental tissue was removed. The uterus was then closed in 2 layers first with running locked 0 Vicryl suture followed by a second imbricating layer with 0 Vicryl suture. 0 Vicryl suture was then used in a horizontal mattress interrupted fashion to affect final hemostasis of the uterine incision line. Normal fallopian tubes and ovaries were visualized and the uterus was returned to the pelvis. Hemostasis was noted and rectus abdominis muscles were reapproximated in the midline with interrupted Number 0 Vicryl suture in a horizontal mattress fashion. Fascia was closed with running Number 1 PDS Strata fix suture. Subcutaneous tissue was irrigated with copious amounts of saline solution and then closed in 2 layers with running 3-0 Vicryl suture. Skin was closed with 4-0 monocryl suture in a running subcuticular fashion. Steri strips and a Mepilex dressing were placed across the incision. The patient tolerated the procedure well and was taken to the recovery room in satisfactory condition. Sponge, needle, and instrument counts were all reportedly correct. EBL was less than 500 cc. Ancef 2 gms IV was given prior to the procedure. Spicemen to Pathology: Placenta Complications: None Amniotic Membrane Rupture Type: Artificial Amniotic Fluid Description: Clear Placenta Disposition: Routine to Lab Specimen(s) sent to pathology: Placenta Drain: Wise to straight drain Cord Entanglement: None Cord Vessel Description: 3 Vessels Esitmated Blood Loss (ml): 500 cc Infant Gender: Male (1 minute): 8 (5 minute): 9 Antibiotic Given: Ancef 2 grams IV x1 Pt instructed on risks of surgery: Bleeding, Infection, Injury to surrounding structure(s) including bowel and bladder Complications: None - Admit VTE Documentation VTE Present on Admission: Yes VTE Mechan Device Prophylaxis: SCD's VTE Pharm Prophylaxis ordered?: Yes
--- NOTE | 2021-03-01 18:20 | DCINST_ITS ---
<Jesus Kohler - Last Filed: 03/01/21 18:20> Discharge Diet: No Restrictions Discharge Activity: May not drive while taking narcotic pain medications., May Shower, May Take a Tub Bath May resume sexual activity in: 4-6 weeks Lifting Restrictions: 20 pounds Additional Activity Instructions:: Nothing in the vagina for 4-6 weeks. You may return to work/school in 6 weeks. Call your doctor if your incision/area has: Continuous Slow Oozing, Sudden Increased Bleeding, Increased Pain/ Swelling, Increased Redness, Foul Smelling Discharge Call your doctor if you observe: Fever of 101 or Higher, Inability to urinate, Inability to have a bowel movement, Using more than one pad per hour Additional Instructions: If you experience any of the following, contact your healthcare provider. * Bleeding that soaks a pad every hour for 2 hours * Fever 100.4 or higher * Unrelieved incision or abdominal pain * Swelling, redness, discharge or bleeding from your incision or episiotomy site * Your incision begins to separate * Problems urinating (including inability to urinate or burning while urinating). * Visual changes * Severe headache * Flu-like symptoms * Pain or redness in one of both of your breasts * Pain, warmth, tenderness or swelling in your legs, especially the calf area * Frequent nausea and vomiting * Symptoms of depression or anxiety If you experience any of the following, call 911 or go to the nearest Emergency Room. * Chest pain * Problems breathing * Seizure activity * Partial or complete paralysis of a body part, slurred speech, weakness or drooping of the face, or a sudden inability to walk or hold your balance Allergies/Adverse Reactions: Allergies amoxicillin [From Augmentin] Adverse Reaction (Verified 01/29/21 16:56) Other clavulanic acid [From Augmentin] Adverse Reaction (Verified 02/27/21 07:53) Other causes yeast infection Medications to take at Discharge Cholecalciferol (Vitamin D3) [Vitamin D3] 2,000 unit PO DAILY 08/11/20 No122/Iron/Folic Acid [ Multi Tablet] 1 ea PO DAILY 08/11/20 Docusate Sodium [Colace] 100 mg PO BID PRN PRN #60 capsule 03/01/21 Oxycodone [Oxyir] 5 mg PO Q6H PRN PRN 7 Days #14 tab 03/01/21 The following prescriptions were given: Docusate Sodium [Colace] 100 mg PO BID PRN PRN #60 capsule PRN Reason: Constipation Transmission Status: Received by [facility] [facility]. Oxycodone [Oxyir] 5 mg PO Q6H PRN PRN 7 Days #14 tab PRN Reason: Pain Score 6-10 Transmission Status: Received by [address] [facility]. Follow-Up: Call to make an appointment with your doctor for an incision check in 1-2 weeks. You will also need a 6 week post- follow up appointment. Test results from this visit will be discussed in further detail at your follow- up appointment, if applicable. Please Follow Up With: Jesus Kohler MD - [phone] When: Call to make an appointment for an incision check in 2 weeks. Primary Care Physician: Maria Antonia Khan MD [Primary Care Provider] - <Horacio Khan - Last Filed: 03/03/21 07:35> Discharge Activity: - Additional Instructions: If you experience any of the following, contact your healthcare provider. * Bleeding that soaks a pad every hour for 2 hours * Fever 100.4 or higher * Unrelieved incision or abdominal pain * Swelling, redness, discharge or bleeding from your incision or episiotomy site * Your incision begins to separate * Problems urinating (including inability to urinate or burning while urinating). * Visual changes * Severe headache * Flu-like symptoms * Pain or redness in one of both of your breasts * Pain, warmth, tenderness or swelling in your legs, especially the calf area * Frequent nausea and vomiting * Symptoms of depression or anxiety If you experience any of the following, call 911 or go to the nearest Emergency Room. * Chest pain * Problems breathing * Seizure activity * Partial or complete paralysis of a body part, slurred speech, weakness or drooping of the face, or a sudden inability to walk or hold your balance Follow-Up: Call to make an appointment with your doctor for an incision check in 1-2 weeks. You will also need a 6 week post- follow up appointment. Test results from this visit will be discussed in further detail at your follow- up appointment, if applicable. Please Follow Up With: Horacio Khan MD
--- NOTE | 2021-03-01 18:22 | PLAC_PTH ---
PATIENT: TIFFANIE RANDOLPH LOC: [facility] U#:[id number] AGE/SX: 20/F ROOM: WP007 RE02/27/[address]: Dr. Dary Khan DO : 2000 BED: 1 DIS: 03/03/2021 SPEC #: [id number] RECD: 03/01/21 21:05 STATUS: RYLEE REElie #: [id number] DEANDRA: 03/01/21 18:[address]: Dary Khan DEPT: SURGICAL PATHOLOGY RECD BY: Taniya Mera ENTERED: 03/02/21 07:23 SP TYPE: PLACENTA OTHR DR: Dr. Maria Antonia Khan MD Tissues: Placenta, NOS Procedures: Surgery Specimen Level V HEADER OPERATION: Primary section PRE-OP DIAGNOSIS: Diabetes, failure to progress TISSUE SUBMITTED: Placenta MICROSCOPIC DIAGNOSIS Levi placenta (532 gm): Umbilical cord - trivascular with acute funisitis. Placental membranes - acute chorioamnionitis and acute deciduitis. Placental disc - acute vasculitis of superficial placental vessels, Evelyn-Claudio change, mildly increased intraparenchymal fibrin plaques. AM:jia 03/06/2021 MICROSCOPIC DESCRIPTION Slides are reviewed. GROSS DESCRIPTION SPECIMEN: PLACENTA / CLINICAL INFORMATION: A. Weight: 3.695 kg B. Gestational Age: 39 weeks C. Sex: Male PLACENTAL WEIGHT (POST FIXATION): 532 gm PLACENTAL DIMENSIONS: 16 x 15 x 3 cm PLACENTAL SHAPE: Usual ovoid PLACENTAL WEIGHT FOR GESTATIONAL AGE: Within 10-99th percentile MEMBRANES - Present A. Insertion: Marginal B. Site of rupture from edge: At edge of placental disc C. Color of membrane: Corbin-sorto D. Abnormalities: None UMBILICAL CORD - Present A. Color: Corbin-sorto B. Insertion: Eccentric C. Length: 29 cm D. Diameter: 1.2 cm E. Number of vessels: Three F. Abnormalities: None PLACENTAL DISC - Present A. Color of surface: Corbin-sorto B. surface abnormalities: None C. Maternal cotyledons: Intact with minimal tears D. Attached retro placental clot: No clot E. Cut surface: Dark red and spongy F. Lesions: None G. Separate clot: 7 x 7 x 1 cm SECTIONS SUBMITTED: 1. Umbilical cord ( end notched) 2. Umbilical cord, placental end 3. Membrane roll 4. Placental disc, and maternal surfaces 5. Placental disc, and maternal surfaces 6. Placental disc, and maternal surfaces AM:jia 03/03/21 TC:2 CPT: 92797
[2021-03-01] MEDS: Oxytocin 30 units/NS 500 ml 30 UNITS/500 ML IV.SOLN 167 UNITS IV (18:35)
[2021-03-01] MEDS: 0.9% Saline Lock 10 ML Syringe IV ×3 (19:21→19:25)
[2021-03-01] MEDS: Acetaminophen 500 MG Tablet 1000 MG PO (19:23)
[2021-03-01] MEDS: Ketorolac 30 MG/ML Syringe IV (19:23)
[2021-03-01 20:30] LABS: Bedside Glucose 127 mg/dL (70-110)
[2021-03-01] MEDS: Lactated Ringers 1,000 ML 100 ML IV (22:04)
[2021-03-02] VITALS (17 sets, daily range): BP systolic 110–123; BP diastolic 57–76; PULSE 91–112; RESP 16–20; TEMP 36.1–37; O2SAT 95–98
[2021-03-02] MEDS: Acetaminophen 500 MG Tablet 1000 MG PO ×4 (01:04→20:19)
[2021-03-02] MEDS: Ketorolac 30 MG/ML Syringe IV ×3 (01:05→13:32)
[2021-03-02] MEDS: Cefazolin 1 GM/50 ML BAG IV ×2 (01:13→09:33)
--- NOTE | 2021-03-02 01:14 | NURSING ---
Late entry: Pt epidural catheter removed tip intact at 2044 on 03/01/21 by this RN. Pt tolerated well, rated pain 0/10. Band-aid applied.
[2021-03-02 01:16] LABS: Bedside Glucose 132 mg/dL (70-110)
[2021-03-02] MEDS: 0.9% Saline Lock 10 ML Syringe IV ×2 (02:27→13:32)
[2021-03-02 05:51] LABS: Hematocrit 30.7 % (37-47); Hemoglobin 10.9 g/dL (12.0-15.0); Mean Corp Hgb Conc 35.5 g/dL (32-36); Mean Corpuscular Hgb 32.1 pg (27.0-32.0); Mean Corpuscular Volume 90.3 fL (81-99); Mean Platelet Vol. 10.6 fl (6.2-12.0); Platelet Count 181 K/mm3 (150-450); RBC Distribution Width CV 12.7 % (11.6-14.6); RBC Distribution Width SD 41.5 fl (35.1-43.9); White Blood Count 18.3 K/mm3 (4.4-11.0)
--- NOTE | 2021-03-02 07:53 | PCM.PN.OB ---
Subjective: Patient without complaints. Tolerating diet well. Minimal vaginal bleeding reported. Pain well controlled. Denies flatus. Objective: Mepilex dressing is clean, dry, no staining. Good urine output. Hemoglobin okay. Blood sugars are all in the normal range. - Physical Exam Vitals/I&O's: Vital Signs Temp Pulse Resp BP Pulse Ox 98.0 F 102 H 16 115/73 98 03/02/21 03:35 03/02/21 07:28 03/02/21 07:28 03/02/21 03:35 03/02/21 07:28 Oxygen Delivery Method Room Air Weight: 243 lb Body Mass Index (BMI) 39.2 Intake and Output for Last 24 Hours 02/28/21 03/01/21 03/02/21 23:59 23:59 23:59 Intake Total 3205.21 / 3205.21 6203.57 / 6203.57 473.33 / 473.33 Output Total 1200 / 1200 4200 / 4200 700 / 700 Balance / 2003.57 / 2002.57 -226.67 / -226.67 Microbiology Past 72 Hours 02/27/21 07:45 Mucosa - Nose SARS-CoV-2 Antigen (Rapid) - Final Laboratory Results 03/01/21 07:48: POC Glucose 74 03/01/21 11:48: POC Glucose 62 L 03/01/21 13:12: POC Glucose 104 03/01/21 14:33: POC Glucose 90 03/01/21 15:28: POC Glucose 92 03/01/21 16:44: POC Glucose 85 03/01/21 20:09: POC Glucose 127 H 03/01/21 23:52: POC Glucose 132 H 03/02/21 05:45: WBC 18.3 H, RBC 3.40 L, Hgb 10.9 L, Hct 30.7 L, MCV 90.3, MCH 32.1 H, MCHC 35.5, RDW Std Deviation 41.5, RDW Coeff of Burke 12.7, Plt Count 181, MPV 10.6 Current Medications Acetaminophen (Acetaminophen 500 Mg Tablet) 1,000 mg PO Q6H [facility] Last Admin: 03/02/21 07:27 Dose: 1,000 mg Documented by: Bisacodyl (Bisacodyl 10 Mg Suppository) 10 mg RC UD PRN PRN Reason: If no BM Diphenhydramine HCl (Diphenhydramine 25 Mg Capsule) 25 mg PO Q6H PRN PRN PRN Reason: ITCHING Stop: 03/02/21 21:27 Hydrocortisone (Hydrocortisone 2.5% Crm) 1 applic TOPICAL TID PRN PRN; Protocol PRN Reason: Discomfort Lactated Ringer's () 1,000 mls @ 100 mls/hr IV .Q10H [facility] Last Infusion: 03/02/21 05:40 Dose: 100 mls/hr Documented by: Cefazolin Sodium () 1 gm in 50 mls @ 150 mls/hr IV Q8H [facility] Stop: 03/02/21 09:49 Last Infusion: 03/02/21 01:33 Dose: Infused Documented by: Ibuprofen (Ibuprofen 600 Mg Tablet) 600 mg PO Q6H [facility] Ketorolac Tromethamine (Ketorolac 30 Mg/Ml Syringe) 30 mg IV Q6H [facility] Stop: 03/02/21 13:16 Last Admin: 03/02/21 07:27 Dose: 30 mg Documented by: Methylergonovine Maleate (Methylergonovine 0.2 Mg/Ml Ampul) 0.2 mg IM X1 PRN PRN Reason: Uterine Atony Last Admin: 03/01/21 17:35 Dose: 0.2 mg Documented by: Nalbuphine HCl (Nalbuphine 10 Mg/Ml Ampul) 5 mg IV Q3H PRN PRN PRN Reason: ITCHING Stop: 03/02/21 21:27 Naloxone HCl (Naloxone 0.4 Mg/Ml Syringe) 0.02 mg IV Q1M PRN PRN Reason: RR <10 and pt unresponsive Ondansetron HCl (Ondansetron 4 Mg/2 Ml Vial) 4 mg IV Q4H PRN PRN PRN Reason: Nausea Oxycodone HCl (Oxycodone 5 Mg Tablet) 5 - 10 mg PO Q4H PRN PRN PRN Reason: Pain Score 4-10 Prochlorperazine Edisylate (Prochlorperazine 10 Mg/2 Ml Vial) 10 mg IV Q6H PRN PRN PRN Reason: NAUSEA Senna/Docusate Sodium (Senna/Docusate Sodium 1 Tablet) 0 tablet PO DAILY [facility] Simethicone (Simethicone 80 Mg Tablet) 80 mg PO [facility] PRN PRN Reason: Indigestion/stomach pain Sodium Chloride (0.9% Saline Lock 10 Ml Syringe) 5 - 15 ml IV UD PRN PRN Reason: SALINE FLUSH Last Admin: 03/02/21 02:27 Dose: 10 ml Documented by: Medical Necessity - Tobacco Use Smoking Status: Light Smoker (<10/day) Assessment/Plan All Active Problems (Last Updated 01/14/21 @ 23:[address] Idalia Willis MD) Missed (Acute) Contraception, device intrauterine (Acute) Encounter for insertion of intrauterine contraceptive device (Acute) 32 weeks gestation of (Acute) Modified White class B pregestational diabetes mellitus (Acute) Doing well postoperative day #1 status post primary section for failure to progress. Continuing present care.
[2021-03-02] MEDS: Senna/Docusate Sodium 1 Tablet PO (12:26)
[2021-03-02 13:40] LABS: Bedside Glucose 116 mg/dL (70-110)
[2021-03-02] MEDS: Ibuprofen 600 MG Tablet PO (20:18)
[2021-03-02 22:36] LABS: Bedside Glucose 98 mg/dL (70-110)
[2021-03-03] MEDS: Acetaminophen 500 MG Tablet 1000 MG PO ×2 (02:30→08:55)
[2021-03-03] MEDS: Ibuprofen 600 MG Tablet PO ×2 (02:30→08:56)
[2021-03-03 02:32] VITALS: BP 112/74; PULSE 100; RESP 16; TEMP 36.2; O2SAT 96
--- NOTE | 2021-03-03 07:32 | PCM.PN.OB ---
Subjective: No overnight complaints. Pain well controlled. - Physical Exam Vitals/I&O's: Vital Signs Temp Pulse Resp BP Pulse Ox 97.2 F L 100 16 112/74 96 03/03/21 02:32 03/03/21 02:32 03/03/21 02:32 03/03/21 02:32 03/03/21 02:32 Oxygen Delivery Method Room Air Weight: 243 lb Body Mass Index (BMI) 39.2 Intake and Output for Last 24 Hours 03/01/21 03/02/21 03/03/21 23:59 23:59 23:59 Intake Total 6203.57 / 6203.57 989.99 / 989.99 Output Total 4200 / 4200 1300 / 1300 Balance 2002.57 / 2002.57 -310.01 / -310.01 General: Alert, Oriented x3, Cooperative, No apparent distress HEENT: Atraumatic, Normocephalic Oral: Moist Mucosa Neck: Supple Abdomen: Soft, - - Appropriately tender. Bandage clean dry and intact Extremities: No clubbing, No cyanosis, No edema Neurological: Neuro grossly intact Psych/Mental Status: Normal Affect, Appropriate, Alert and oriented to time, place, person, mood and affect Laboratory Results 03/02/21 13:30: POC Glucose 116 H 03/02/21 22:13: POC Glucose 98 Current Medications Acetaminophen (Acetaminophen 500 Mg Tablet) 1,000 mg PO Q6H [facility] Last Admin: 03/03/21 02:30 Dose: 1,000 mg Documented by: Bisacodyl (Bisacodyl 10 Mg Suppository) 10 mg RC UD PRN PRN Reason: If no BM Hydrocortisone (Hydrocortisone 2.5% Crm) 1 applic TOPICAL TID PRN PRN; Protocol PRN Reason: Discomfort Ibuprofen (Ibuprofen 600 Mg Tablet) 600 mg PO Q6H [facility] Last Admin: 03/03/21 02:30 Dose: 600 mg Documented by: Methylergonovine Maleate (Methylergonovine 0.2 Mg/Ml Ampul) 0.2 mg IM X1 PRN PRN Reason: Uterine Atony Last Admin: 03/01/21 17:35 Dose: 0.2 mg Documented by: Naloxone HCl (Naloxone 0.4 Mg/Ml Syringe) 0.02 mg IV Q1M PRN PRN Reason: RR <10 and pt unresponsive Ondansetron HCl (Ondansetron 4 Mg/2 Ml Vial) 4 mg IV Q4H PRN PRN PRN Reason: Nausea Oxycodone HCl (Oxycodone 5 Mg Tablet) 5 - 10 mg PO Q4H PRN PRN PRN Reason: Pain Score 4-10 Prochlorperazine Edisylate (Prochlorperazine 10 Mg/2 Ml Vial) 10 mg IV Q6H PRN PRN PRN Reason: NAUSEA Senna/Docusate Sodium (Senna/Docusate Sodium 1 Tablet) 0 tablet PO DAILY [facility] Last Admin: 03/02/21 12:26 Dose: 1 tablet Documented by: Simethicone (Simethicone 80 Mg Tablet) 80 mg PO [facility] PRN PRN Reason: Indigestion/stomach pain Sodium Chloride (0.9% Saline Lock 10 Ml Syringe) 5 - 15 ml IV UD PRN PRN Reason: SALINE FLUSH Last Admin: 03/02/21 13:32 Dose: 10 ml Documented by: Medical Necessity - Tobacco Use Smoking Status: Light Smoker (<10/day) Assessment/Plan All Active Problems (Last Updated 01/14/21 @ 23:[address] Idalia Willis MD) Missed (Acute) Contraception, device intrauterine (Acute) Encounter for insertion of intrauterine contraceptive device (Acute) 32 weeks gestation of (Acute) Modified White class B pregestational diabetes mellitus (Acute) Postop day 2 status post primary section for failure to progress under general anesthesia. Pain well controlled. Bottlefeeding. GDM A2, will need 2-hour postprandial at 6-week visit. Follow-up at 2-week incision check.
[2021-03-03 08:05] VITALS: BP 116/71; PULSE 92; RESP 18; TEMP 36.4; O2SAT 95
[2021-03-03 08:26] LABS: Bedside Glucose 84 mg/dL (70-110)
[2021-03-03] MEDS: Senna/Docusate Sodium 1 Tablet PO (08:55)
[2021-03-03 09:33] LABS: Pathology Specimen OB SEE PATHOLOGY REPORT
--- NOTE | 2021-03-03 11:45 | CASEMGMT ---
Social Work Assessment Labor and Delivery Unit Date of Referral: 03/01/21 Time of Referral: 19:52 Date of Intervention: 03/03/21 Time of Intervention: 11:45a Reason for Referral: History of anxiety, depression, Bi-polar, Borderline Personality Disorder, positive for THC during (07/15/20), history of meth use History obtained from: Medical chart and mother of baby (MOB Household composition: MOB, MOB?s mother- Cecelia Odonnell and now baby boy, Sylvain Odonnell. MOB also reports significant other, Jeremi Carty will be staying with MOB upon discharge. Patient's parent/guardian status: ERIC reports is unsure who the father of the baby is. MOB states unsure if she will be completing paternity testing. Educational Status: MOB completed 11th grade. MOB states plan to get G.E.D. and has goal to become a medical/surgery registered nurse. MOB denies any issues with reading, writing, or understanding what is read. Financial Status: Limited. MOB states prior to COVID-19 pandemic was working for [employer]. MOB states plan of obtaining employment in the near future. Supplies: MOB reports to have all needs met for baby including, crib, car seat, Pack&Play, swings, clothes, diapers, wipes, bottles, etc. Childcare/Caregiver(s): ERIC reports she will be main caregiver. Sister, mother, and significant other will assist as needed Transportation: ERIC stephens does not have her license at this time. ERIC relies on significant other for assistance with transportation. Programs/Agencies Involved: S, [employer] [place], [facility], [facility]. ERIC stephens will be calling [facility] on Saturday. Children Services/Legal Issues: ERIC stephens was in custody of Children Services at the age of 19 due to her drug use. ERIC stephens was in alf center and then placed in a usp in [place], [place] until the age of 19. MOB denies any legal issues. Behavioral Health Issues: Mental Health History: ERIC openly discussed mental health history reporting to be diagnosed with anxiety, depression, Bipolar Disorder, and Borderline Personality Disorder. ERIC jackson is treated with Abilify, but quit taking medication when she became . ERIC jackson does have a filled prescription for Abilify at home and will be re-starting medication. ERIC jackson follows with [facility] at [facility]. MOB reports, ?I know myself and I know when to ask for help and get help.? Substance Use History: MOB reports use of marijuana early in . MOB states was having trouble with self-image and believes was not consuming food like she should for baby. MOB reports to help aide with appetite she ?smoked a few times.? MOB denies any current use or plans to return to use once home. 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 MOB states while in alf completed detox from meth. Maternal and Drug Screens: MOB?s urine tox screen negative upon admission. urine tox screen negative. Meconium has been collected. Will watch for meconium results. Support Systems: MOB reports good support from mother, friends, and significant other-Jeremi. Depression and Anxiety/Shaken Baby/Safe Sleeping/Help Me Grow: Reviewed educational information with MOB. MOB denies referral to Help Me [facility] at this time and states through insurance obtained information for [facility] and if needed once home will call and set up services. ASSESSMENT: Met with MOB and significant other-Jeremi in room. Introduced role and reason for referral. MOB sitting up in bed bottle feeding baby boySylvain upon entering room. MOB open to speaking with this worker. MOB openly discussed mental health and history of past substance use including marijuana and meth. MOB states has not used meth in several years. MOB admits to marijuana use during . MOB made aware a report will be made to Children Services and verbalized understanding. MOB reports no plan to continue use. MOB appropriate throughout assessment, maintained good eye contact, and initiated conversations regarding mental health and substance use. Assessment discussed with nursing. Nurse reports MOB bonding well with baby and no concerns for care of baby. Safe Plan of Care for infant related to substance use: MOB reports no plans to use substances. PLAN: Home with resources provided. Report to be made to Children Services regarding use of THC during . Vaishali Cline, ANODIZER, EXPERIMENTAL PSYCHOLOGIST
--- NOTE | 2021-03-03 12:33 | CASEMGMT ---
SOCIAL WORK Call to [facility], spoke with Celia. Report made regarding history of substance use and use of THC during . Discussed MOB does not know who FOB is at this time and unsure if will obtain paternity. Review of MOB's mental health history and treatment. Celia states case will require discussion for possible screen in for dependancy. Celia reports MOB able to discharge home this day. Nursing staff camilo. Vaishali Cline, AIR FORCE SENIOR OFFICER, FACILITY ADMINISTRATOR
[2021-03-03 13:54] VITALS: BP 115/74; PULSE 85; RESP 16; TEMP 36.1; O2SAT 97
--- NOTE | 2021-03-09 07:30 | PCM.DC.SUM ---
Discharge Date and Diagnosis Date of Admission: 02/27/21 Date of Discharge: 03/03/21 Hospital Course and Treatment Operations: - - primary section Procedures: None Summary of Care Provided: The patient is a 20 year old F [arrived for induction of labor. After failure to progress patient had primary section. Progress within normal limits and discharged home on postoperative day 2. Patient with GDM A2 to follow-up . ] Subjective: Patient comfortable pain well controlled. Objective: Postoperative day 2 status post primary section for failure to progress. GDM A2 will need 2-hour GTT. Pain well controlled. - Physical Exam Vitals/I&O's: Vital Signs Temp Pulse Resp BP Pulse Ox 97.0 F L 85 16 115/74 97 03/03/21 13:54 03/03/21 13:54 03/03/21 13:54 03/03/21 13:54 03/03/21 13:54 Oxygen Delivery Method Room Air Weight: 243 lb Body Mass Index (BMI) 39.2 General: Alert, Oriented x3, Cooperative, No apparent distress HEENT: Atraumatic, PERRLA, Normocephalic Oral: Moist Mucosa Neck: Supple Abdomen: Soft, Non Tender Extremities: No clubbing, No cyanosis, No edema Neurological: Neuro grossly intact Psych/Mental Status: Normal Affect, Appropriate, Alert and oriented to time, place, person, mood and affect Discharge Diet: No Restrictions Discharge Activity: Return to Normal Activity, May Drive, May Shower, - - No tub baths for 2 weeks May resume sexual activity in: 4-6 weeks Additional Activity Instructions:: Nothing in the vagina for 4-6 weeks. You may return to work/school in 6 weeks. Call your doctor if your incision/area has: Continuous Slow Oozing, Sudden Increased Bleeding, Increased Pain/ Swelling, Increased Redness, Foul Smelling Discharge Call your doctor if you observe: Fever of 101 or Higher, Inability to urinate, Inability to have a bowel movement, Using more than one pad per hour Home Medications: Medications to take at Discharge Cholecalciferol (Vitamin D3) [Vitamin D3] 2,000 unit PO DAILY 08/11/20 No122/Iron/Folic Acid [ Multi Tablet] 1 ea PO DAILY 08/11/20 Docusate Sodium [Colace] 100 mg PO BID PRN PRN #60 capsule 03/01/21 Following Prescriptions Were Given to Patient: Docusate Sodium [Colace] 100 mg PO BID PRN PRN #60 capsule PRN Reason: Constipation Transmission Status: Received by CARL[facility] MANUEL [address] Primary Care Physician: Maria Antonia Khan MD [Primary Care Provider] - Please Follow Up With: Horacio Khan MD When: Call to make an appointment for an incision check in 2 weeks. Medical Necessity - Tobacco Use Smoking Status: Light Smoker (<10/day) Meaningful Use Info Meaningful Use Diagnoses (Choose all that apply): None applicable
== END 2021-03-03 14:15 | disposition home or self-care (01) | DRG 540 ==
PROVIDERS: Obstetrics & Gynecology; Admitting Provider Student in an Organized Health Care Education/Training Program; PCP Pediatrics; Visit Provider Student in an Organized Health Care Education/Training Program
DX: O76 Abnormality in fetal heart rate and rhythm complicating labor and delivery (principal); O62.2 Other uterine inertia; O32.4XX0 Maternal care for high head at term, not applicable or unspecified; O24.424 Gestational diabetes mellitus in childbirth, insulin controlled; O99.214 Obesity complicating childbirth; E66.01 Morbid (severe) obesity due to excess calories; O99.324 Drug use complicating childbirth; F12.90 Cannabis use, unspecified, uncomplicated; F15.21 Other stimulant dependence, in remission; O99.334 Smoking (tobacco) complicating childbirth; F17.200 Nicotine dependence, unspecified, uncomplicated; Z3A.39 39 weeks gestation of pregnancy; Z37.0 Single live birth
CPT/HCPCS: 59025; 59050; 80307; 82962; 85025; 85027; 86850; 86900; 86901; 87426; 88307; 99218; 99251; J7120; A4216; G0378; G0463; J2405

== ENCOUNTER → 2021-04-03 09:53 | Outpatient (CLI) | payer MEDICAID, SELFPAY ==
[2021-02-27 07:25] VITALS: BMI 39.2
[2021-04-03 11:40] LABS: Glucose 2 Hour Postprandial 90 mg/dL (<140)
== END ==
PROVIDERS: PCP Pediatrics; Referring Provider Student in an Organized Health Care Education/Training Program; Visit Provider Student in an Organized Health Care Education/Training Program
DX: E11.65 Type 2 diabetes mellitus with hyperglycemia (principal)
CPT/HCPCS: 36415; 82950

== ENCOUNTER 2021-07-31 22:00 | Emergency (ER) | payer MEDICAID, SELFPAY ==
[2021-07-31 22:01] VITALS: BP 126/90; PULSE 95; RESP 18; TEMP 36.3; O2SAT 97; BMI 39.5
--- NOTE | 2021-07-31 23:48 | EDS_ITS ---
HPI History of Present Illness Chief Complaint: General Illness Informant: patient Narrative Narrative: 20-year-old female presents the emergency department with concerns for COVID-19. Patient states that her roommate has tested positive. She has had other known exposures. She states that since for the past several days she has had progressive symptoms. She notes headache sore throat rhinorrhea cough dyspnea diarrhea myalgias subjective fever. She is unvaccinated. She notes a history of asthma but currently has no medications. PFSH PFSH Medical History Bipolar depression Diabetes mellitus Home Medications cholecalciferol (vitamin D3) 2,000 unit PO DAILY 08/11/20 [History Last Taken 02/25/21 19:00] [id number] acid 1 ea PO DAILY 08/11/20 [History Last Taken 02/25/21 19:00] docusate sodium 100 mg PO BID PRN PRN #60 capsule 03/01/21 [Rx Last Taken Unkn own] Allergy/AdvReac Type Severity Reaction Status Date / Time amoxicillin [From Augmentin] AdvReac Other Verified 07/31/21 22:03 clavulanic acid AdvReac Other Verified 07/31/21 22:03 [From Augmentin] Surgical History H/O dilation and curettage Social History (Updated 07/31/21 @ 23:[address] New Gonzalez DO) Smoking Status: Light Smoker (<10/day) substance use type: does not use ROS ROS ED Constitutional Constitutional ED: Reports chills and fever(s); Denies weight loss Eyes Eyes: Denies change in vision or diplopia ENT ENT ED: Reports rhinorrhea and sore throat; Denies ear pain Cardiovascular Cardiovascular: Denies chest pain, orthopnea, palpitations or racing heartbeat Respiratory/Chest Respiratory/Chest: Reports cough, dyspnea and dyspnea on exertion; Denies orthopnea Gastrointestinal Gastrointestinal: Reports diarrhea; Denies abdominal pain, nausea or vomiting Genitourinary Genitourinary ED: Denies dysuria, hematuria or urinary frequency Musculoskeletal Musculoskeletal: Reports myalgias; Denies arthralgias Integumentary Denies abscess or rash Neurologic Neurologic: Reports headache(s); Denies weakness Psychiatric Psychiatric: Denies anxiety, depression, suicidal ideation or suicidal thoughts Endocrine Endocrinology: Denies polydipsia, polyphagia or polyuria Allergic/Immunologic Allergic/Immunologic ED: Denies mouth swelling, tongue swelling or urticaria EXAM Physical Exam Const Vital Signs: 07/31/21 22:01 08/01/21 00:04 Temperature 97.4 F L Temperature Source Temporal Pulse Rate 95 Respiratory Rate 18 Respiratory Effort Normal Respiratory Pattern Normal Blood Pressure 126/90 H Blood Pressure Mean 102 Pulse Ox 97 Oxygen Delivery Method Room Air Positive well nourished, well developed and obese General Appearance ED: well developed Nutritional Appearance: obese HEENT Reports normocephalic, head/scalp atraumatic and moist mucous membranes Eyes PERRL and EOMs intact bilaterally Neck no lymphadenopathy, supple and no JVD Resp normal respiratory effort and clear to auscultation bilaterally Cardio regular rate, regular rhythm and no murmurs GI normal to inspection, nondistended, normoactive bowel sounds and non-tender Palpation: soft Back/Spine no CVA tenderness and normal ROM Extremity normal to inspection General Extremety ED: Negative for edema General Extremity: Negative for edema Neuro oriented x3 and CN's II-XII intact bilaterally Sensorium / Orientation: alert Motor Exam: strength 5/5 throughout Psych mental status grossly normal Mood & Affect: Negative for depressed or tearful Skin no rashes or lesions noted and no wounds MDM MDM MDM Narrative Medical decision making narrative: My interpretation of the plain films of the chest x-ray is no acute process. Covid test is negative. Patient will be dis charged home with supportive care as she is unvaccinated with a close contact that is positive she should continue to quarantine. Return if worsening or concerns Discharge Plan Triage Chief Complaint: General Illness ED Provider: New Gonzalez Dx/Rx/DC Orders Clinical Impression: Close exposure to COVID-19 virus Instructions: Coronavirus Disease 2019 (COVID-19): Caring for Yourself or Others Prescriptions: No Action cholecalciferol (vitamin D3) 2,000 UNIT capsule 2,000 unit PO DAILY RF: 0 [id number] 1 EACH tablet 1 ea PO DAILY RF: 0 docusate sodium 100 MG capsule 100 mg PO BID PRN PRN (Reason: Constipation) Qty: 60 RF: 1 Primary Care Provider: Care Physician,No Primary Referrals: Care Physician,No Primary [Primary Care Provider] - Disposition Disposition: Home, Self Care
--- NOTE | 2021-07-31 23:50 | RAD_ITS ---
STUDY: X-RAY CHEST REASON FOR EXAM: Female, 20 years old. Cough TECHNIQUE: Single AP portable view of the chest. COMPARISON: February 11, 2019 chest x-ray FINDINGS: Hazy appearance of the lung bases allowing for the lesser expansion of the lungs since prior study. There is no demonstrated pleural abnormality. Normal size heart. Normal mediastinum and dea. Normal visualized pulmonary arteries. Normal visualized aortic arch and descending thoracic aorta. Normal visualized thoracic spine. Normal visualized ribs, clavicles, and shoulders. There is no demonstrated abnormality of the visualized soft tissue structures of the upper abdomen. RAD/Chest 1 View (Portable) IMPRESSION: Minimal lower lobe atelectasis cannot entirely exclude developing infiltrates. Electronically Signed: Loly Ryan MD at 2:15 EDT Tel , Service support ,
--- NOTE | 2021-08-01 01:50 | ED.RN ---
CALLED RADIOLOGY AND SPOKE WITH GARO. SHE WILL CALL THE RADIOLOGIST IT HAS BEEN WELL OVER THE TARGET TIME FOR RESULTS.
== END 2021-08-01 02:15 | disposition home or self-care (01) ==
PROVIDERS: Emergency Provider Emergency Medicine
DX: Z20.822 Contact with and (suspected) exposure to COVID-19 (principal); E66.9 Obesity, unspecified; F17.200 Nicotine dependence, unspecified, uncomplicated
CPT/HCPCS: 71045; 87426; 99282

== ENCOUNTER 2021-09-14 13:43 | Emergency (ER) | payer MEDICAID, SELFPAY ==
[2021-09-14 13:44] VITALS: BP 138/99; PULSE 115; RESP 16; TEMP 37.1; O2SAT 100; BMI 39.5
--- NOTE | 2021-09-14 14:20 | EX.ED.DYSGE1 ---
HPI History of Present Illness Chief Complaint: Allergic Reaction Detail of Chief Complaint: Bee sting right lateral ankle 1 hour ago. Informant: patient Onset/Context/Timing Onset: Today Context: Sudden Onset Timing: Continuous Current Severity: Mild Maximum Severity: Mild Narrative Narrative: 20-year-old female believes she is diabetic but does not check her blood sugars. Said about an hour to an hour and a half ago she was stung on her right lateral ankle by a bee. She said her ankle sw swelled. She also diffuse itching and a rash that resolved other places. No trouble breathing. No wheezing. No swelling of her lips or tongue. Prior similar symptoms: No Recent Illness/Hospitalization: No PFSH PFSH Medical History Bipolar depression Diabetes mellitus Home Medications cholecalciferol (vitamin D3) 2,000 unit PO DAILY 08/11/20 [History Last Taken 02/25/21 19:00] [id number] acid 1 ea PO DAILY 08/11/20 [History Last Taken 02/25/21 19:00] docusate sodium 100 mg PO BID PRN PRN #60 capsule 03/01/21 [Rx Last Taken Unknown] Allergy/AdvReac Type Severity Reaction Status Date / Time amoxicillin [From Augmentin] AdvReac Other Verified 09/14/21 13:47 clavulanic acid AdvReac Other Verified 09/14/21 13:47 [From Augmentin] Surgical History H/O dilation and curettage Social History Smoking Status: Light Smoker (<10/day) substance use type: does not use ROS ROS ED ROS Narrative Rash and itching after bee sting. Otherwise no recent illness. Review of Systems ROS Unobtainable: Denies due to encephalopathy Constitutional Constitutional ED: Denies fever(s) Eyes Eyes: Denies change in vision ENT ENT ED: Denies ear pain or sore throat Cardiovascular Cardiovascular: Denies chest pain Respiratory/Chest Respiratory/Chest: Denies cough or dyspnea Gastrointestinal Gastrointestinal: Denies abdominal pain or nausea Genitourinary Genitourinary ED: Denies dysuria Musculoskeletal Musculoskeletal: Denies myalgias Integumentary Reports rash Neurologic Neurologic: Denies headache(s) Psychiatric Psychiatric: Denies depression Endocrine Endocrinology: Denies polyuria Allergic/Immunologic Allergic/Immunologic ED: Denies urticaria EXAM Physical Exam Narrative Exam Narrative: 20-year-old female no acute distress. Vital signs stable afebrile. Pulse ox 100%. No distress. HEENT exam normal. Lungs clear. No wheezing. Heart regular rhythm. Abdomen soft. Moving all 4 extremities. Right lateral ankle as a local reaction. There is redness. There is no stinger in place. Otherwise exam unremarkable. Except for mild resolving rash on her upper extremities. Again consistent with a generalized allergic reaction. Const Vital Signs: 09/14/21 13:44 09/14/21 14:40 Temperature 98.8 F Temperature Source Temporal Pulse Rate 115 H 74 Respiratory Rate 16 15 Blood Pressure 138/99 H 131/69 H Blood Pressure Mean 112 Pulse Ox 100 97 Oxygen Delivery Method Room Air Positive well nourished, well developed and obese; Negative for cachectic, contractures or unkempt General Appearance ED: well developed and NAD; Negative for unkempt, cachectic, contractures, cyanotic or diaphoretic Nutritional Appearance: obese; Negative for cachectic HEENT Reports moist mucous membranes Negative for trauma or tenderness Eyes PERRL and EOMs intact bilaterally Neck no lymphadenopathy, supple and no JVD General: Negative for tenderness Chest Wall inspection of chest normal and palpation of chest normal Resp normal respiratory effort and clear to auscultation bilaterally Cardio regular rate, regular rhythm, S1 normal heart sound, S2 normal heart sound and no murmurs GI normal to inspection, nondistended, normoactive bowel sounds, non-tender, non-distended and no masses Auscultation: normoactive bowel sounds Palpation: soft; Negative for tender or guarding Psych Appearance: Negative for unkempt MDM MDM Lab Data Labs: Laboratory Results - last 24 hr 09/14/21 14:20 POC Glucose 204 H Discharge Plan Triage Chief Complaint: Allergic Reaction ED Provider: Simon Liao Dx/Rx/DC Orders Clinical Impression: Allergic reaction to bee sting Instructions: ED BEE STING General Allergic Rxn Prescriptions: No Action cholecalciferol (vitamin D3) 2,000 UNIT capsule 2,000 unit PO DAILY RF: 0 [id number] acid 1 EACH tablet 1 ea PO DAILY RF: 0 docusate sodium 100 MG capsule 100 mg PO BID PRN PRN (Reason: Constipation) Qty: 60 RF: 1 Primary Care Provider: Care Physician,No Primary Referrals: Care Physician,No Primary [Primary Care Provider] - Activity Restrictions/Additional Instructions: Ice and elevate. Benadryl for itching. Motrin for pain and swelling. This should progressively improve. Disposition Disposition: Home, Self Care Discharge Date/Time: 09/14/21 14:41
[2021-09-14 14:25] LABS: Bedside Glucose 204 mg/dL (70-110)
[2021-09-14 14:40] VITALS: BP 131/69; PULSE 74; RESP 15; O2SAT 97
[2021-09-14] MEDS: DiphenhydrAMINE 25 MG Capsule PO (14:40)
[2021-09-14] MEDS: predniSONE 20 MG Tablet 40 MG PO (14:40)
== END 2021-09-14 14:41 | disposition home or self-care (01) ==
LOC: ED 14:24
PROVIDERS: Emergency Provider Emergency Medicine
DX: T63.441A Toxic effect of venom of bees, accidental (unintentional), initial encounter (principal); R22.41 Localized swelling, mass and lump, right lower limb; Y92.9 Unspecified place or not applicable; F17.200 Nicotine dependence, unspecified, uncomplicated
CPT/HCPCS: 82962; 99283

== ENCOUNTER → 2021-10-03 15:40 | Outpatient (CLI) | payer MEDICAID, SELFPAY ==
[2021-10-03 17:28] LABS: Hemoglobin A1c 5.2 % (3.8-5.6)
[2021-10-03 17:31] LABS: Prolactin 6.7 ng/mL; T4 Free Direct 0.96 ng/dL (0.76-1.46); Thyroid Stim Hormone (TSH) 0.66 uIU/mL (0.358-3.74)
[2021-10-06 15:34] LABS: Testosterone Free 0.8 pg/mL (Not Estab.)
== END ==
PROVIDERS: Visit Provider Student in an Organized Health Care Education/Training Program
DX: E28.2 Polycystic ovarian syndrome (principal)
CPT/HCPCS: 36415; 82627; 83036; 84146; 84402; 84439; 84443; 82626

== ENCOUNTER 2023-06-16 17:55 | Emergency (ER) | payer MEDICAID, SELFPAY ==
[2023-06-16 17:56] VITALS: BP 128/92; PULSE 80; RESP 18; TEMP 36.6; O2SAT 99; BMI 41.6
--- NOTE | 2023-06-16 18:17 | CT_ITS ---
STUDY: CT BRAIN WITHOUT CONTRAST REASON FOR EXAM: Female, 22 years old. INJURY/PAIN RADIATION DOSAGE (If Supplied By Facility): CTDIvol = ( 44.99 ) mGy, DLP = ( 779.24 ) mGycm TECHNIQUE: Transaxial CT imaging of the brain was performed without administration of intravenous contrast material. Individualized dose optimization techniques were used for this CT. COMPARISON: 01/19/2020 FINDINGS: Normal soft tissue structures. Normal calvarium. Normal size ventricles and extra-axial spaces for the patient''s age. Normal white matter tracts of the cerebral hemispheres. Normal basal ganglia and thalami. Normal brainstem. Normal cerebellum. There is no intracranial hemorrhage. There are no findings of an acute ischemic infarction. Normal visualized paranasal sinuses. CT/Brain/Head without Contrast IMPRESSION: Normal unenhanced CT scan of the brain. Electronically Signed: Titus Heredia MD at 19:37 EDT ,
--- NOTE | 2023-06-16 19:28 | EX.ED.GENINJ ---
HPI History of Present Illness Chief Complaint: Head Injury Narrative Narrative: 22-year-old female who denies significant past medical history presents with laceration to her left anterior to temporal scalp that she sustained when she got hit in the head with a wax warmer. She was at home, trying to move a bunch of them that were above her head. 1 fell and hit her in the left head. She was dazed but denies any loss of consciousness, she sustained a laceration to her scalp. She denies other injury. Her tetanus immunization is current within the last 2 years. She presents because she is having mild headache, and she was dazed afterwards. No seizure activity, no postictal state. [facility] Medical History Bipolar depression Diabetes mellitus Home Medications cholecalciferol (vitamin D3) 50 mcg (2,000 unit) capsule 2,000 unit PO DAILY diabetic 08/11/20 [History Last Taken 02/25/21 19:00] vit 122-ferrous fumarate 27 mg iron-folic acid 800 mcg tablet 1 ea PO DAILY diabetic 08/11/20 [History Last Taken 02/25/21 19:00] docusate sodium 100 mg capsule 100 mg PO BID PRN PRN Constipation #60 CAPSULES 03/01/21 [Rx Last Taken Unknown] Allergy/AdvReac Type Severity Reaction Status Date / Time amoxicillin [From Augmentin] AdvReac Other Verified 06/16/23 17:57 clavulanic acid AdvReac Other Verified 06/16/23 17:57 [From Augmentin] Surgical History H/O dilation and curettage Social History Smoking Status: Current every day smoker tobacco type: e-cigarettes substance use type: does not use ROS ROS ED ROS Narrative Constitutional: No fever, no chills. HEENT: No sore throat. No neck pain. No loss of vision. No rhinorrhea. Scalp laceration towards left forehead. Cardiovascular: No chest pain. No palpitations. No pedal edema. Respiratory: No cough, no shortness of breath. Abdominal: No abdominal pain. No nausea. No vomiting. Genitourinary: No dysuria. No hematuria. Musculoskeletal: No myalgias. No arthralgias. Neurologic: Positive headaches. No dizziness. No lightheadedness. Skin: No rash. No change in color. Psychiatric: No depression. No anxiety. EXAM Physical Exam Narrative Exam Narrative: Afebrile. Vital signs noted. GCS 15. ABCs intact. HEENT: Normocephalic. Less than 1 cm laceration left anterior scalp without active bleeding. PERRL, EOMI. Neck soft and supple. No point tenderness or step off. Cardiovascular: Regular rate and rhythm. No murmurs, rubs, or gallops appreciated. Respiratory: No tachypnea. Lungs clear to auscultation bilaterally. Gastrointestinal: Abdomen soft, nontender, with normoactive bowel sounds. No rebound or guarding. Neurological: Awake. Alert. Oriented to person place and time. Nonfocal, nonlateralizing. Skin: No rash. Normal color. No pallor. Musculoskeletal: No pedal edema. Full range of motion extremities. Const Vital Signs: 06/16/23 17:56 06/16/23 19:19 Temperature 98 F Temperature Source Temporal Pulse Rate 80 Respiratory Rate 18 Respiratory Effort Normal Non-Labored Respiratory Depth Normal Respiratory Pattern Normal Blood Pressure 128/92 H Blood Pressure Mean 104 Pulse Ox 99 Oxygen Delivery Method Room Air Room Air MDM MDM MDM Narrative Medical decision making narrative: CT of the brain was obtained per RN protocol. I discussed the idea of skin closure of her scalp laceration. She is declining any malia or suturing, or hair tourniquet. As it is his approximately 1 cm/less than 1 cm, I do feel that it could heal by secondary intent. She was told of the risk of infection and scarring and acknowledges an understanding. She was given Tylenol 1 g orally at her request for her headache. I do feel she has more of a closed head injury with mild concussion. I reviewed her CT imaging and the CT report. Her CT was read as normal with no evidence of acute hemorrhage or skull fracture. I feel she can be discharged safely home with follow-up. Return instructions to the emergency department were reviewed. Disposition is discharged home in stable condition. Radiography Diagnostic Testing: Clinical Impression(s) from Imaging Studies Brain CT 06/16/23 18:17 IMPRESSION: Normal unenhanced CT scan of the brain. Electronically Signed: Titus Heredia MD at 19:37 EDT , Discharge Plan Triage Chief Complaint: Head Injury ED Provider: Eladio Regan Dx/Rx/DC Orders Clinical Impression: Mild concussion, Closed head injury, Laceration of scalp Instructions: ED Concussion, ED Head Injury (Adult), ED Laceration Small or ... Prescriptions: No Action cholecalciferol (vitamin D3) 2,000 UNIT capsule 2,000 unit PO DAILY [id number] acid 1 EACH tablet 1 ea PO DAILY docusate sodium 100 MG capsule 100 mg PO BID PRN PRN (Reason: Constipation) Qty: 60 1RF Primary Care Provider: Care Physician,No Primary Referrals: Care Physician,No Primary [Primary Care Provider] - Disposition Disposition: Home, Self Care
[2023-06-16] MEDS: Acetaminophen 500 MG Tablet 1000 MG PO (19:37)
== END 2023-06-16 19:54 | disposition home or self-care (01) ==
PROVIDERS: Emergency Provider Emergency Medicine; Visit Provider Emergency Medicine
DX: S06.0X0A Concussion without loss of consciousness, initial encounter (principal); S01.01XA Laceration without foreign body of scalp, initial encounter; F17.290 Nicotine dependence, other tobacco product, uncomplicated; W19.XXXA Unspecified fall, initial encounter
CPT/HCPCS: 70450; 99283

== ENCOUNTER 2023-11-10 15:20 | Emergency (ER) | payer MEDICAID, SELFPAY ==
[2023-11-10 15:22] VITALS: BP 138/91; PULSE 89; RESP 14; TEMP 36.5; O2SAT 100; BMI 40.6
--- NOTE | 2023-11-10 15:55 | EDS_ITS ---
HPI History of Present Illness Chief Complaint: Fatigue Informant: patient Onset/Context/Timing Onset: Weeks (3-4) Context: Gradual Onset Timing: Continuous Quality: Sore Location: Generalized Worsened by: Cold Relieved by: Nothing Narrative Narrative: Patient presents with fatigue for the past 3 to 4 weeks. Patient states that she feels sore all over. Patient states it is getting progressively worse. Patient states that she is having difficulty lifting her son which she normally does without difficulty. Patient states she feels weak all over. Patient admits to some pain in her neck and back. Patient states she did have some nausea and vomiting. Patient states she had 1 episode of vomiting a small amount of blood. Patient denies any melena or hematochezia. Patient admits to some shortness of breath but denies any chest pain. Patient states she tried to see her primary care physician but he was unable to see her. Patient states she went to the urgent care but they were closed so she came to the emergency department. [facility] Medical History (Updated 11/10/23 @ 16:[address] Ed Dorantes DO) Asthma Bipolar depression Diabetes mellitus Home Medications albuterol sulfate 90 mcg/actuation aerosol inhaler 2 puff inhalation .q4hr prn 11/10/23 [History Last Taken Unknown] fluticasone propionate 220 mcg/actuation HFA aerosol inhaler (Flovent HFA) 1 puff inhalation BID 11/10/23 [History Last Taken Unknown] Allergy/AdvReac Type Severity Reaction Status Date / Time amoxicillin [From Augmentin] AdvReac Other Verified 11/10/23 15:23 clavulanic acid AdvReac Other Verified 11/10/23 15:23 [From Augmentin] Surgical History (Updated 11/10/23 @ 15:[address] Ed Dorantes DO) H/O section H/O dilation and curettage Social History (Updated 11/10/23 @ 15:[address] Ed Dorantes DO) Smoking Status: Current every day smoker tobacco type: e-cigarettes substance use type: marijuana ROS ROS ED Constitutional Constitutional ED: Reports chills and subjective; Denies fever(s) Eyes Eyes: Denies blurry vision or change in vision ENT ENT ED: Denies rhinorrhea or sore throat Cardiovascular Cardiovascular: Denies chest pain or palpitations Respiratory/Chest Respiratory/Chest: Reports dyspnea; Denies cough Gastrointestinal Gastrointestinal: Reports nausea and vomiting Genitourinary Genitourinary ED: Denies dysuria or hematuria Musculoskeletal Musculoskeletal: Reports back pain and neck pain Integumentary Denies abscess or rash Neurologic Neurologic: Reports headache(s) and weakness Allergic/Immunologic Allergic/Immunologic ED: Denies mouth swelling or urticaria EXAM Physical Exam Const Vital Signs: 11/10/23 15:22 11/10/23 15:30 Temperature 97.7 F L Temperature Source Temporal Pulse Rate 89 Respiratory Rate 14 Respiratory Effort Normal Non-Labored Respiratory Pattern Normal Blood Pressure 138/91 H Blood Pressure Mean 106 Pulse Ox 100 Oxygen Delivery Method Room Air Positive well nourished and well developed General Appearance ED: well developed and NAD HEENT Reports moist mucous membranes Neck supple and no JVD Resp normal respiratory effort and clear to auscultation bilaterally Cardio regular rate and regular rhythm GI non-tender and non-distended Palpation: soft Neuro oriented x3, CN's II-XII intact bilaterally and no sensory deficits noted Sensorium / Orientation: alert Motor Exam: strength 5/5 throughout Psych mental status grossly normal MDM MDM MDM Narrative Medical decision making narrative: Differential diagnosis includes anemia, urinary tract infection, viral illness, COVID-19 infection, influenza infection, RSV infection, pneumonia, and electrolyte abnormality. Chest x-ray will be obtained to assess for pneumonia. CBC will be obtained to assess for anemia and leukocytosis. Basic metabolic profile will be obtained to assess for electrolyte abnormality and renal function. Urinalysis will be obtained to assess for urinary tract infection and hematuria. COVID-19 rapid antigen will be obtained to assess for COVID-19 infection. Influenza A and influenza B antigens will be obtained to assess for influenza infection. RSV antigen will be obtained to assess for RSV infection. Lab Data Attestation: I reviewed the patient's lab results. Lab results narrative: CBC was reviewed and was within normal limits. Basic metabolic profile was reviewed and was within normal limits. Serum hCG was reviewed and was negative. Urinalysis was reviewed. There is no evidence of urinary tract infection or hematuria. Labs: Laboratory Results - last 24 hr 11/10/23 16:16 WBC 7.9 RBC 4.78 Hgb 14.3 Hct 42.9 MCV 89.7 MCH 29.9 MCHC 33.3 RDW Std Deviation 38.9 RDW Coeff of [place] 12.0 Plt Count 250 MPV 10.0 Immature Gran % (Auto) 0.300 Neut % (Auto) 49.8 Lymph % (Auto) 36.6 [place] % (Auto) 5.2 Eos % (Auto) 7.3 H Baso % (Auto) 0.8 Absolute Neuts (auto) 3.9 Absolute Lymphs (auto) 2.89 Nucleated RBC % 0 Sodium 140 Potassium 3.9 Chloride 108 H Carbon Dioxide 30.0 Anion Gap 2 L BUN 8 Creatinine 0.78 Estim Creat Clear Calc 106.81 Est GFR (MDRD) Af Amer 118 Est GFR (MDRD) Non-Af 98 BUN/Creatinine Ratio 10.2 Glucose 94 Calcium 9.1 Serum , Qual NEGATIVE Urine Color Yellow Urine Clarity Sl. Cloudy Urine pH 5.0 Ur Specific [place] 1.015 Urine Protein Negative Urine Glucose (UA) Normal Urine Ketones Negative Urine Occult Blood Negative Urine Nitrite Negative Urine Bilirubin Negative Urine Urobilinogen Normal Ur Leukocyte Esterase Negative Urine RBC 0 SEEN Urine WBC 0 SEEN Ur Squamous Epith Cells 0-5 SEEN Urine Bacteria 0 SEEN Urine Mucus 0 SEEN Radiography Chest X-Ray - ED: 2 View, Read by ED Physician, Read by Radiologist and No Acute Disease Diagnostic Testing: Clinical Impression(s) from Imaging Studies Chest X-Ray 11/10/23 16:20 IMPRESSION: No radiographic evidence of acute cardiopulmonary disease. Electronically Signed: Marco Max MD at 16:32 EST Reading Location ID and State: [facility] / [place] , Service support , [place] and lateral chest x-ray was obtained. There are 2 views. On my independent interpretation, lung hercules are clear. There is normal cardiac silhouette. Bony thorax is normal. There is no acute process noted. Radiologist also interpreted the x-ray and agrees. Treatment and Re-Evaluation :: Patient was given IV fluids. Patient was advised of her findings. Patient was instructed to drink plenty fluids. Patient was instructed to follow-up with her primary care physician in 5 to 7 days for further evaluation. Patient understood and was agreeable with the plan. All questions were answered. Discharge Plan Triage Chief Complaint: Fatigue ED Provider: Ed Dorantes Dx/Rx/DC Orders Clinical Impression: Fatigue, Morbid obesity with BMI of 40.0-44.9, adult Instructions: ED Weakness (Uncertain Cause) Prescriptions: No Action fluticasone propionate [Flovent HFA] 220 mcg/actuation HFA aerosol inhaler 1 puff INHALATION BID Patient Comments: inhale 1 puff by mouth and INTO THE LUNGS twice a day use with SP... (REFER TO PRESCRIPTION NOTES). albuterol sulfate 90 mcg/actuation HFA aerosol inhaler 2 puff INHALATION .q4hr prn Patient Comments: inhale 2 puffs by mouth and INTO THE LUNGS every 4 hours if neede... (REFER TO PRESCRIPTION NOTES). Primary Care Provider: Care Physician,No Primary Referrals: Eric Hamilton DO [Med Staff - [employer]] - 5-7 Days Care Physician,No Primary [Primary Care Provider] - Disposition Disposition: Home, Self Care
[2023-11-10] MEDS: 0.9% Normal Saline (1000mL) 1,000 ML 1000 ML IV (16:18)
--- NOTE | 2023-11-10 16:20 | RAD_ITS ---
EXAM: XR CHEST, 2 VIEWS CLINICAL INDICATION: Weakness TECHNIQUE: Frontal and lateral views of the chest. COMPARISON: 07/31/2021 FINDINGS: LUNGS AND PLEURAL SPACES: Unremarkable. No consolidation or edema. No pneumothorax. No effusion. HEART: Unremarkable. Cardiac silhouette not enlarged. MEDIASTINUM: Central airways and mediastinal contour are unremarkable. BONES/JOINTS: Unremarkable. No acute fracture. SOFT TISSUES: Unremarkable. RAD/Chest PA and Lateral IMPRESSION: No radiographic evidence of acute cardiopulmonary disease. Electronically Signed: Marco Max MD at 16:32 EST ,
[2023-11-10 16:27] LABS: Bacteria 0 SEEN /hpf (None Seen); Mucous, Urine 0 SEEN /hpf (<or=2+); Red Blood Cells-Urine 0 SEEN /hpf (0-5); White Blood Cells 0 SEEN /hpf (0-5)
[2023-11-10 16:28] LABS: Absolute Lymphocyte Count 2.89 X10^3/uL (0.83-4.51); Absolute Neutrophil Count 3.9 X10^3/uL (2.0-7.7); Basophil# 0.06 X10^3/uL; Basophil% 0.8 % (0-1); Eosinophil# 0.58 X10^3/uL; Eosinophils% 7.3 % (0-5); Hematocrit 42.9 % (37-47); Hemoglobin 14.3 g/dL (12.0-15.0); Lymphocyte # 2.89 X10^3/ul (0.83-4.51); Lymphocyte % 36.6 % (19-41); Mean Corp Hgb Conc 33.3 g/dL (32-36); Mean Corpuscular Hgb 29.9 pg (27.0-32.0); Mean Corpuscular Volume 89.7 fL (81-99); Monocyte# 0.41 X10^3/uL; Monocyte% 5.2 % (0-10); NRBC Flagged by Analyzer 0 % (0-5); Neutrophil # 3.94 X10^3/uL (2.7-7.7); Neutrophil % 49.8 % (47-70); Platelet Count 250 K/mm3 (150-450); RBC Distribution Width SD 38.9 fl (35.1-43.9); Red Blood Count 4.78 M/mm3 (4.2-5.4); White Blood Count 7.9 K/mm3 (4.4-11.0)
[2023-11-10 16:33] LABS: Color, Urine Yellow (Yellow); Glucose, Dipstick Normal (Normal); Ketone-Dipstick Negative (Negative); Leukocyte Esterase-Dipstick Negative /ul (Negative); Nitrite-Dipstick Negative (Negative); Occult Blood-Urine Negative /ul (Negative); Protein-Dipstick Negative (Negative); Specific Gravity, Urine 1.015 (1.002-1.030); Urine Bilirubin Dipstick Negative (Negative); Urine Clarity Sl. Cloudy (Clear); Urine Urobilinogen Normal (Normal)
[2023-11-10 16:41] LABS: Anion Gap 2 (5-15); BUN 8 mg/dL (7-18); BUN/Creat Ratio 10.2 RATIO (10-20); Calcium,Total 9.1 mg/dL (8.5-10.1); Chloride 108 mmol/L (98-107); Creatinine, Serum 0.78 mg/dL (0.55-1.02); EST Glomerular Filtration Rate 98 mL/min (>60); Est Glom Filt Rate - Afr Amer 118 mL/min (>60); Estimated Creatinine Clearance 106.81 ml/min; Glucose 94 mg/dL (74-106); Potassium 3.9 mmol/L (3.5-5.1); Sodium Level 140 mmol/L (136-145)
[2023-11-10 16:42] LABS: Squamous Epithelial Cells - UA 0-5 SEEN /hpf (5-10)
[2023-11-10 16:44] LABS: Internal QC Validated? YES +Cl - CLEAR BKGD; Pregnancy, Serum, hCG Quali. NEGATIVE Negative
== END 2023-11-10 17:11 | disposition home or self-care (01) ==
PROVIDERS: Emergency Provider Emergency Medicine; Visit Provider Emergency Medicine
DX: R53.83 Other fatigue (principal); E66.01 Morbid (severe) obesity due to excess calories; Z68.41 Body mass index [BMI] 40.0-44.9, adult; E11.9 Type 2 diabetes mellitus without complications; F17.290 Nicotine dependence, other tobacco product, uncomplicated; F12.90 Cannabis use, unspecified, uncomplicated
CPT/HCPCS: 71046; 80048; 81001; 84703; 85025; 96360; 99283; J7030; A4216

== ENCOUNTER 2025-06-02 10:29 | Emergency (ER) | payer MEDICAID, SELFPAY ==
[2025-06-02 10:29] VITALS: BP 119/85; PULSE 85; RESP 14; TEMP 36.6; O2SAT 98; BMI 41.4
[2025-06-02 10:31] VITALS: BP 120/88; PULSE 79; RESP 18; O2SAT 99
--- NOTE | 2025-06-02 10:46 | CT_ITS ---
PROCEDURE: ABDOMEN/PELVIS W IV CONT ONLY 06/02/2025 REASON FOR EXAM: PAIN, DIARRHEA TECHNIQUE: ABDOMEN/PELVIS W IV CONT ONLY Coronal and Sagittal reconstruction series were provided. CONTRAST: Isovue 370 VOLUME: 100 mL One or more dose reduction techniques were used (e.g., Automated exposure control, adjustment of the mA and/or kV according to patient size, use of iterative reconstruction technique. RADIATION DOSE SUMMARY: CTDlvol: 23.96 mGy DLP: 1323.54 mGycm COMPARISON: None FINDINGS: Lung bases: Unremarkable Liver: Normal size. No mass. Gallbladder: Surgically absent. Spleen: Normal size. Pancreas: Normal size without evidence of mass surrounding inflammation or ductal dilation. Adrenals: Unremarkable Kidneys: Normal renal sizes. No hydronephrosis. Bladder: Unremarkable Reproductive Organs: Normal uterus and ovaries. Bowel: No bowel obstruction. Appendix: Appendix seen on axial images 80 through 84 No free intraperitoneal fluid, air, or suspicious adenopathy Normal aorta and IVC Bones: Normal CT/Abdomen/Pelvis W IV Cont ONLY IMPRESSION: No suspicious solid organ abnormality No free intraperitoneal fluid, air, or suspicious adenopathy, normal appendix v isualized Normal osseous structures Reading Location: [id number]
--- NOTE | 2025-06-02 10:46 | CT_ITS ---
PROCEDURE: ABDOMEN/PELVIS W IV CONT ONLY 06/02/2025 REASON FOR EXAM: PAIN, DIARRHEA TECHNIQUE: ABDOMEN/PELVIS W IV CONT ONLY Coronal and Sagittal reconstruction series were provided. CONTRAST: Isovue 370 VOLUME: 100 mL One or more dose reduction techniques were used (e.g., Automated exposure control, adjustment of the mA and/or kV according to patient size, use of iterative reconstruction technique. RADIATION DOSE SUMMARY: CTDlvol: 23.96 mGy DLP: 1323.54 mGycm COMPARISON: None FINDINGS: Lung bases: Unremarkable Liver: Normal size. No mass. Gallbladder: Surgically absent. Spleen: Normal size. Pancreas: Normal size without evidence of mass surrounding inflammation or ductal dilation. Adrenals: Unremarkable Kidneys: Normal renal sizes. No hydronephrosis. Bladder: Unremarkable Reproductive Organs: Normal uterus and ovaries. Bowel: No bowel obstruction. Appendix: Appendix seen on axial images 80 through 84 No free intraperitoneal fluid, air, or suspicious adenopathy Normal aorta and IVC Bones: Normal CT/Abdomen/Pelvis W IV Cont ONLY IMPRESSION: No suspicious solid organ abnormality No free intraperitoneal fluid, air, or suspicious adenopathy, normal appendix v isualized Normal osseous structures Reading Location: [id number]
--- NOTE | 2025-06-02 10:50 | EDS_ITS ---
HPI HPI - GI History of Present Illness Chief Complaint: Diarrhea Narrative Narrative: 44-year-old female past medical history of asthma, abdominal surgery remotely of cholecystectomy presents with nausea and diarrhea. She denies any fevers or chills but states she has been having lower quadrant abdominal pain and diarrhea over the last few days. She had an episode of diarrhea yesterday, then today at work, she had an episode of diarrhea in her clothing. She denies any exacerbating or alleviating factors but is having abdominal cramping in the bilateral lower quadrants of her abdomen. Last menstrual period was approximately a month ago. She presents because the abdominal pain and cramping is getting worse, and she had an accident in her pants today. [facility] Medical History Asthma Bipolar depression Diabetes mellitus Home Medications ?Medication ?Instructions ?Recorded ?Last Taken ?Type albuterol sulfate 90 mcg/actuation 2 puff inhalation . q4hr prn 11/10/23 Unknown History aerosol inhaler fluticasone propionate 220 1 puff inhalation BID 11/10 Unknown History mcg/actuation HFA aerosol inhaler (Flovent HFA) Allergy/AdvReac Type Severity Reaction Status Date / Time amoxicillin (From Augmentin) AdvReac Other Verified 06/02/25 10:29 clavulanic acid (From AdvReac Other Verified 06/02/25 10:29 Augmentin) Surgical History H/O section H/O dilation and curettage Social History Smoking Status: Current every day smoker tobacco type: e-cigarettes substance use type: marijuana ROS ROS ED ROS Narrative Review of systems positive for nausea and diarrhea as well as abdominal cramping in bilateral lower quadrants. No vomiting, no fevers or chills. EXAM Physical Exam Narrative Exam Narrative: Afebrile. Vital signs noted. Nontoxic-appearing. Cardiovascular examination reveals regular rate and rhythm. Lungs are clear to auscultation bilaterally. Abdomen is soft with mild tenderness to palpation in the bilateral lower quadrants, no guarding or rebound. Positive bowel sounds. Neurological examination nonfocal, nonlateralizing. Const Vital Signs: 06/02/25 10:29 Temperature 98 F Temperature Source Temporal Pulse Rate 85 Respiratory Rate 14 Blood Pressure 119/85 H Blood Pressure Mean 96 Pulse Ox 98 Oxygen Delivery Method Room Air MDM MDM MDM Narrative Medical decision making narrative: Differential diagnosis includes but not limited to enteritis versus colitis versus diverticulitis versus ovarian pathology including ectopic for her lower abdominal pain. Comprehensive workup was pursued. Discharge Plan Triage Chief Complaint: Diarrhea ED Provider: Eladio Regan Dx/Rx/DC Orders Prescriptions: No Action fluticasone propionate [Flovent HFA] 220 mcg/actuation HFA aerosol inhaler 1 puff INHALATION BID Patient Comments: inhale 1 puff by mouth and INTO THE LUNGS twice a day use with SP... (REFER TO PRESCRIPTION NOTES). albuterol sulfate 90 mcg/actuation HFA aerosol inhaler 2 puff INHALATION .q4hr prn Patient Comments: inhale 2 puffs by mouth and INTO THE LUNGS every 4 hours if neede... (REFER TO PRESCRIPTION NOTES). Primary Care Provider: Care Physician,No Primary Referrals: Care Physician,No Primary [Primary Care Provider] - Print Language: Kinyarwanda
--- NOTE | 2025-06-02 10:50 | ED.VIS.GI ---
HPI HPI - GI History of Present Illness Chief Complaint: Diarrhea Narrative Narrative: 44-year-old female past medical history of asthma, abdominal surgery remotely of cholecystectomy presents with nausea and diarrhea. She denies any fevers or chills but states she has been having lower quadrant abdominal pain and diarrhea over the last few days. She had an episode of diarrhea yesterday, then today at work, she had an episode of diarrhea in her clothing. She denies any exacerbating or alleviating factors but is having abdominal cramping in the bilateral lower quadrants of her abdomen. Last menstrual period was approximately a month ago. She presents because the abdominal pain and cramping is getting worse, and she had an accident in her pants today. [facility] Medical History Asthma Bipolar depression Diabetes mellitus Home Medications ?Medication ?Instructions ?Recorded ?Last Taken ?Type albuterol sulfate 90 mcg/actuation 2 puff inhalation Q4H PRN 11/10/23 Unknown History aerosol inhaler shortness of breath or wheezing dicyclomine 20 mg tablet 20 mg PO TID #20 tabs 06/02/25 Unknown Rx ondansetron 4 mg disintegrating 4 mg PO Q8H PRN PRN Nausea #10 tabs 06/02/25 Unknown Rx tablet Allergy/AdvReac Type Severity Reaction Status Date / Time amoxicillin (From Augmentin) AdvReac Other Verified 06/02/25 10:29 clavulanic acid (From AdvReac Other Verified 06/02/25 10:29 Augmentin) Surgical History H/O section H/O dilation and curettage Social History Smoking Status: Current every day smoker tobacco type: e-cigarettes substance use type: marijuana ROS ROS ED ROS Narrative Review of systems positive for nausea and diarrhea as well as abdominal cramping in bilateral lower quadrants. No vomiting, no fevers or chills. EXAM Physical Exam Narrative Exam Narrative: Afebrile. Vital signs noted. Nontoxic-appearing. Cardiovascular examination reveals regular rate and rhythm. Lungs are clear to auscultation bilaterally. Abdomen is soft with mild tenderness to palpation in the bilateral lower quadrants, no guarding or rebound. Positive bowel sounds. Neurological examination nonfocal, nonlateralizing. Const Vital Signs: 06/02/25 10:29 06/02/25 10:31 06/02/25 12:31 Temperature 98 F Temperature Source Temporal Pulse Rate 85 79 74 Respiratory Rate 14 18 18 Blood Pressure 119/85 H 120/88 H 112/87 H Blood Pressure Mean 96 98 95 Pulse Ox 98 99 99 Oxygen Delivery Method Room Air 06/02/25 14:17 Temperature 98.7 F Temperature Source Pulse Rate 64 Respiratory Rate 18 Blood Pressure 136/76 H Blood Pressure Mean 96 Pulse Ox 99 Oxygen Delivery Method MDM MDM MDM Narrative Medical decision making narrative: Differential diagnosis includes but not limited to enteritis versus colitis versus diverticulitis versus ovarian pathology including ectopic for her lower abdominal pain. Comprehensive workup was pursued. I reviewed her laboratory work and she has normal white count 6.7 with hemoglobin 13.4, hematocrit 38.6, platelet count normal at 186. CMP remarkable for glucose of 150 with a normal anion gap of 10, normal BUN and creatinine, sodium normal at 138 with potassium 4.0. LFTs grossly unremarkable. Serum negative. Urinalysis negative for infection with 0 WBCs. I do not feel antibiotics are indicated. I reviewed the radiology report of the CT of the abdomen pelvis which shows no acute process. Appendix visualized and no acute inflammation or appendicitis. Upon repeat examination, patient resting comfortably on the cot. She states her nausea has improved after ondansetron. She states she is still having abdominal cramping. I offered her dicyclomine shot versus pill and she opted for oral medication. Additionally, she relates history that she has history of irritable bowel syndrome and follows with Dr. Tuttle. She states she may have new triggers or irritants. I feel she can be discharged safely home with follow-up to gastroenterology. She was written prescriptions for Zofran ODT's and Bentyl. Return instructions to the emergency department were reviewed. Disposition is discharged home, in stable condition. History & Record Review Discussion w/independent historian: Patient Additional record(s) reviewed:: Prior ED visit Lab Data Attestation: I reviewed the patient's lab results. Labs: Laboratory Results - last 24 hr 06/02/25 06/02/25 11:09 11:23 WBC 6.7 RBC 4.37 Hgb 13.4 Hct 38.6 MCV 88.3 MCH 30.7 MCHC 34.7 RDW Std Deviation 39.9 RDW Coeff of [place] 12.3 Plt Count 186 MPV 9.9 Immature Gran % (Auto) 0.100 Neut % (Auto) 50.1 Lymph % (Auto) 36.1 [place] % (Auto) 6.9 Eos % (Auto) 6.4 H Baso % (Auto) 0.4 Absolute Neuts (auto) 3.4 Absolute Lymphs (auto) 2.42 Nucleated RBC % 0 Sodium 138 Potassium 4.0 Chloride 103 Carbon Dioxide 25.4 Anion Gap 10 BUN 11 Creatinine 0.79 Estim Creat Clear Calc 143.68 Est GFR (MDRD) Non-Af 108 BUN/Creatinine Ratio 14.2 Glucose 150 H Calcium 9.4 Total Bilirubin 1.22 AST 24 ALT 23 Alkaline Phosphatase 67 Total Protein 7.2 Albumin 4.2 Globulin 3.0 Albumin/Globulin Ratio 1.4 Serum , Qual NEGATIVE Urine Color Yellow Urine Clarity Clear Urine pH 7.0 Ur Specific [place] 1.010 Urine Protein Negative Urine Glucose (UA) Normal Urine Ketones Negative Urine Occult Blood Negative Urine Nitrite Negative Urine Bilirubin Negative Urine Urobilinogen Normal Ur Leukocyte Esterase Negative Urine RBC Not Reportable Urine WBC 0-5 SEEN Ur Squamous Epith Cells 0 SEEN Urine Bacteria 0 SEEN Urine Mucus 0 SEEN Radiography Diagnostic Testing: Clinical Impression(s) from Imaging Studies Abdomen/Pelvis CT 06/02/25 10:46 IMPRESSION: No suspicious solid organ abnormality No free intraperitoneal fluid, air, or suspicious adenopathy, normal appendix visualized Normal osseous structures Reading Location: [facility] Discharge Plan Triage Chief Complaint: Diarrhea ED Provider: Eladio Regan Dx/Rx/DC Orders Clinical Impression: Abdominal cramping, Nausea, Diarrhea Instructions: ED Abdominal Pain Unkn Cause Fem, ED Diarrhea, Unknown Cause Prescriptions: New dicyclomine 20 mg tablet 20 mg PO TID Qty: 20 0RF ondansetron 4 mg tablet,disintegrating 4 mg PO Q8H PRN PRN (Reason: Nausea) Qty: 10 0RF No Action albuterol sulfate 90 mcg/actuation HFA aerosol inhaler 2 puff INHALATION Q4H PRN (Reason: shortness of breath or wheezing) Patient Comments: inhale 2 puffs by mouth and INTO THE LUNGS every 4 hours if neede... (REFER TO PRESCRIPTION NOTES). Primary Care Provider: Soren Brooke Referrals: Care Physician,No Primary [Non-Staff] - Activity Restrictions/Additional Instructions: Follow-up with your supervisor [employer], Dr. Tuttle as soon as possible. This may be an exacerbation of your irritable bowel syndrome. Return with fever, new or worsening symptoms. Print Language: New Zealander Disposition Disposition: Home, Self Care Discharge Date/Time: 06/02/25 14:19
[2025-06-02] MEDS: 0.9% Normal Saline (1000mL) 1,000 ML 999 ML IV (11:08)
[2025-06-02 11:16] LABS: Hematocrit 38.6 % (37-47); Hemoglobin 13.4 g/dL (12.0-15.0); Immature Granulocytes Count 0.010 X10^3/uL (0.0-0.0); Mean Corp Hgb Conc 34.7 g/dL (32-36); Mean Corpuscular Volume 88.3 fL (81-99); Mean Platelet Vol. 9.9 fl (6.2-12.0); NRBC Flagged by Analyzer 0 % (0-5); Platelet Count 186 K/mm3 (150-450); RBC Distribution Width CV 12.3 % (11.6-14.6); RBC Distribution Width SD 39.9 fl (35.1-43.9); Red Blood Count 4.37 M/mm3 (4.2-5.4); White Blood Count 6.7 K/mm3 (4.4-11.0)
[2025-06-02 11:34] LABS: Mucous, Urine 0 SEEN /hpf (<or=2+); Squamous Epithelial Cells - UA 0 SEEN /hpf (5-10)
[2025-06-02 11:37] LABS: Color, Urine Yellow (Yellow); Glucose, Dipstick Normal (Normal); Ketone-Dipstick Negative (Negative); Leukocyte Esterase-Dipstick Negative /ul (Negative); Nitrite-Dipstick Negative (Negative); Occult Blood-Urine Negative /ul (Negative); Protein-Dipstick Negative (Negative); Specific Gravity, Urine 1.010 (1.002-1.030); Urine Bilirubin Dipstick Negative (Negative)
[2025-06-02 11:39] LABS: Internal QC Validated? YES +Cl - CLEAR BKGD; Pregnancy, Serum, hCG Quali. NEGATIVE Negative; Record Kit Lot#, Serum Preg. 0000947241
[2025-06-02 11:54] LABS: AST(SGOT) 24 U/L (<=31); Alanine Aminotransfer ALT/SGPT 23 U/L (<=34); Albumin, Serum 4.2 g/dL (3.5-5.0); Alkaline Phosphatase 67 U/L (35-104); Anion Gap 10 (5-15); BUN 11 mg/dL (4-19); BUN/Creat Ratio 14.2 RATIO (10-20); Calcium,Total 9.4 mg/dL (7.6-11.0); Carbon Dioxide 25.4 mmol/L (21.0-32.0); Chloride 103 mmol/L (98-108); Estimated Creatinine Clearance 143.68 ml/min (50-250); Globulin 3.0 g/dL (2.2-4.2); Glucose 150 mg/dL (70-99); Potassium 4.0 mmol/L (3.3-5.1)
[2025-06-02 12:31] VITALS: BP 112/87; PULSE 74; RESP 18; O2SAT 99
[2025-06-02 14:17] VITALS: BP 136/76; PULSE 64; RESP 18; TEMP 37.1; O2SAT 99
== END 2025-06-02 14:19 | disposition home or self-care (01) ==
PROVIDERS: Emergency Provider Emergency Medicine; PCP Family Medicine; Referring Provider Emergency Medicine; Visit Provider Emergency Medicine
DX: R19.7 Diarrhea, unspecified (principal); R10.31 Right lower quadrant pain; R10.32 Left lower quadrant pain; R11.0 Nausea; F17.290 Nicotine dependence, other tobacco product, uncomplicated
CPT/HCPCS: 74177; 80053; 81001; 84703; 85025; 96361; 96374; 99283; Q9967; A4216; J2405